=== PATIENT | male | born 1935 | race Caucasian/White ===

== ENCOUNTER → 2016-06-08 | Day surgery (SDC) | payer BC ==
[2016-06-02 08:20] VITALS: Ht 177.8 cm; Wt 72.7 kg
[~2016-06-08] VITALS: Ht 177.8 cm; Wt 72.7 kg
[~2016-06-08] MED LIST: 500ML BSS 0.3ML EPI 1:1000PF IRRIG ONE; ACETAMINOPHEN 325 MG TAB PO PRN; AGG PO; AMVISC PLUS 0.8ML SYRINGE INT OCU ONE; BSS FLUSH ONE; EpINEphrine INJ 1MG/ML AMP 1 MG/ML AMP ONE; LACTATED RINGER'S 1000ML 500 ML IV SCH; LIDOCAINE 3.5% OPH GEL PER APPLICATION CHARGE ONE; LIDOCAINE HCL 1% MPF 2 ML VIAL ONE; LISI5TAB3 PO; METO25TA3 PO; MIDAZOLAM HCL 1 MG/ML 2ML VIAL ONE; MULT-506 PO; OCUCOAT 1 ML SOLN IO ONE; OMEG10007 PO; POVIDONE-IODINE OP SOLN 30 ML BTL ONE; PROPARACAINE 0.5% OP SOLN PER DROP CHARGE OPL SCH; SIMV10TA2 PO; TOBRAMYCIN/DEXAMETHASONE OPH OINT PER APPLN CHARGE ONE; VALA500T60 PO
[2016-06-08] MEDS: PHENYLEPHRINE HCL 2.5% OP SOLN PER DROP CHARGE OPL SCH ×2 (09:14→09:19)
[2016-06-08] MEDS: TROPICAMIDE 1% OP SOLN PER DROP CHARGE OPL SCH ×2 (09:15→09:20)
[2016-06-08] MEDS: CYCLOPENTOLATE HCL 1% OP SOLN PER DROP CHARGE OPL SCH ×2 (09:16→09:21)
[2016-06-08] MEDS: KETOROLAC 0.5% OP SOLN PER DROP CHARGE OPL SCH ×2 (09:17→09:22)
[2016-06-08] MEDS: GATIFLOXACIN OP SOLN PER DROP CHARGE OPL SCH ×2 (09:18→09:28)
--- NOTE | 2016-06-08 09:47 | History & Physical Bridge - [place] ---
H&P Re-Evaluation Bridge Note: I have examined the patient, reviewed the History & Physical and in the interval since the performance of the History & Physical I have noted the following changes of clinical significance: No changes noted
--- NOTE | 2016-06-08 10:30 | Discharge Instructions-SurgCtr ---
Discharge Instructions Visit Reason for Visit: Cataract Left Eye Discharge Discharge Diagnosis / Problem: cataract Discharge Goals Goal(s): Improve function Activity Recommendations Activity Limitations: per Instructions/Follow-up section Anesthesia . Post Anesthesia Instructions: If you have had General Anesthesia or IV Sedation: * Do not drive today. * Resume driving when surgeon permits. * Do not make important decisions or sign legal documents today. * Call surgeon for: 1. Temperature elevations greater than 101 degrees F. 2. Uncontrollable pain. 3. Excessive bleeding. 4. Persistent nausea and vomiting. 5. Medication intolerance (nausea, vomiting or rash). * For nausea and vomiting use only clear liquids such as: tea, soda, bouillon until nausea subsides, then gradually increase diet as tolerated. * If you have any concerns or questions, call your surgeon's office. If physician is unavailable and it is an emergency, call 911 or go to the nearest emergency room. . Instructions / Follow-Up Instructions / Follow-Up ACTIVITY RECOMMENDATIONS: * No strenuous lifting, jogging or running for 4 days * No swimming or yard work for 1 week. * Limited bending is permitted, such as putting on shoes. RETURN TO SCHOOL/WORK: No work until seen by physician in office. MEDICATIONS: Resume previous medications unless instructed otherwise by your surgeon. This includes eye drops for glaucoma. Zymaxid/Gatifloxacin (medina cap) - one drop every 2 hours until bedtime Nevanac/Ilevro/Prolensa/Ketorolac (khan cap) - one drop every 4 hours until bedtime Prednisolone (white/pink cap, SHAKE WELL) - one drop every 2 hours until bedtime Starting tomorrow - all 3 drops every 4 hours until seen in the office Optive drops - as needed for discomfort SPECIAL CARE INSTRUCTIONS: * Wear eyeshield when sleeping, for four nights. * You may wear your own glasses or sunglasses while awake. * You may read or watch TV * You may shower and wash your face, but be gentle around the eye and pat dry. * Blurry vision and mild irritation are normal. * Call office if pain is more severe or vision becomes dark at . FOLLOW UP VISIT: Follow-up with Dr Alaniz tomorrow. Diet Recommendations Home Diet: resume previous diet Procedures Procedures Performed: Left Eye Cataract Phacoemulsification With Intraocular Lens Implant Pending Studies Studies pending at discharge: no Medical Emergencies . Who to Call and When: Medical Emergencies: If at any time you feel your situation is an emergency, please call 911 immediately. . Non-Emergent Contact Non-Emergency issues call your: Plug Cutting Machine Operator . . "Provider Documentation" section prepared by Garo Alaniz.
--- NOTE | 2016-06-08 10:31 | [facility] Operative Report ---
Operative Report 1. PREOPERATIVE DIAGNOSIS: Cataract of the left eye. 2. POSTOPERATIVE DIAGNOSIS: Same. 3. PROCEDURE: Phacoemulsification with intraocular lens implantation of the left eye. SURGEON: Dr. Garo Alaniz. ANESTHESIA: Topical Lidocaine gel, 1% Non- Preserved intracameral Lidocaine, and monitored intravenous sedation. INDICATIONS FOR THE PROCEDURE: The patient is a 80 - year-old male with a history of cataract of the left eye causing significant visual impairment. The details of the proposed procedure were explained to the patient who asked appropriate questions and following discussion of all risks, benefits and alternatives agreed to have the procedure done. 4. OPERATION AND FINDINGS: DESCRIPTION OF PROCEDURE: After informed consent was obtained, the patient was brought to the Operating Room at the [facility]. The patient was placed in a supine position and then the left eye was prepped and draped in the usual sterile fashion for intraocular surgery. A drop of topical Lidocaine gel was placed in the operative eye. A wire lid speculum was then placed in the fornices. A corneal paracentesis was then created temporally. The Non-Preserved Lidocaine was then instilled into the anterior chamber. The anterior chamber was then pressurized with viscoelastic. A 2.0 mm clear corneal incision was then created temporally. A cystotome was inserted into the anterior chamber and used to create a tear in the anterior lens capsule. This capsular tear was then used to create a small flap and the flap was dragged in a counterclockwise direction in order to create a continuous curvilinear capsulorrhexis. Hydrodissection was accomplished with balanced salt solution. Phacoemulsification of the lens nucleus was then performed in a standard [id number] technique. The phaco time was 33 seconds with an average power of 13 %. The remaining cortical material was removed using irrigation aspiration. The capsular bag was then filled with viscoelastic. A Bausch [employer] Lomb MI60L +17.5 diopters lens was then loaded into the injector and injected into the capsular bag. The remaining viscoelastic was removed with the irrigation aspiration handpiece. The wound was hydrated and then checked and found to be watertight. The intraocular pressure was checked and found to be adequate. The wire lid speculum was removed and the patient's face was cleaned and dried. TobraDex ointment was placed in the inferior fornix. The patient was discharged to the Recovery Room having tolerated the procedure well. There were no complications. The patient will be seen tomorrow in the office for follow-up. I attest to the content of the Intraoperative Record and any orders documented therein. Any exceptions are noted below.
--- NOTE | 2016-06-08 10:44 | Anesthesia Progress Nt - [facility] ---
Anesthesia Post Op Note Date & Time Jun 08, 2016 at 10:44 Vital Signs Pain Intensity: 0 Vital Signs Past 12 Hours Date Time Temp Pulse Resp B/P Pulse Ox O2 Delivery O2 Flow Rate FiO2 06/08/16 10:30 36.8 61 16 116/80 96 Room Air 06/08/16 09:28 139/86 06/08/16 09:07 36.6 56 18 150/89 97 Room Air Notes Mental Status: alert / awake / arousable, participated in evaluation Nausea / Vomiting: adequately controlled Pain: adequately controlled Airway Patency, RR, SpO2: stable & adequate BP & HR: stable & adequate Hydration State: stable & adequate Anesthetic Complications: no major complications apparent Pt doing well.
[2016-06-08 10:52] VITALS: BP 135/86; PULSE 59; O2SAT 99
== END | disposition home or self-care (01) ==
LOC: X.SURG 08:49
PROVIDERS: ATTEND Ophthalmology
DX: H26.9 Unspecified cataract (principal); I10 Essential (primary) hypertension; I67.89 Other cerebrovascular disease; E78.5 Hyperlipidemia, unspecified; H91.93 Unspecified hearing loss, bilateral

== ENCOUNTER → 2016-06-29 | Day surgery (SDC) | payer BC ==
[2016-06-18 14:23] VITALS: Ht 177.8 cm; Wt 72.7 kg
[~2016-06-29] VITALS: Ht 177.8 cm; Wt 72.7 kg
[~2016-06-29] MED LIST changes: -500ML BSS 0.3ML EPI 1:1000PF IRRIG ONE; -AMVISC PLUS 0.8ML SYRINGE INT OCU ONE; +ATROPINE SULFATE 0.1 MG/ML 5ML SYR IV PRN; -BSS FLUSH ONE; +EpHEDrine SULFATE INJ 50 MG/ML AMP IV PRN; +FENTANYL CITRATE INJ 50 MCG/1 ML 2 ML VIAL IV PRN; -OCUCOAT 1 ML SOLN IO ONE; +ONDANSETRON INJ 2 MG/ML 2 ML VIAL IV PRN; -PROPARACAINE 0.5% OP SOLN PER DROP CHARGE OPL SCH; +PROPARACAINE 0.5% OP SOLN PER DROP CHARGE OPR SCH
[2016-06-29] MEDS: PHENYLEPHRINE HCL 2.5% OP SOLN PER DROP CHARGE OPR SCH ×2 (08:15→08:20)
[2016-06-29] MEDS: TROPICAMIDE 1% OP SOLN PER DROP CHARGE OPR SCH ×2 (08:16→08:21)
[2016-06-29] MEDS: CYCLOPENTOLATE HCL 1% OP SOLN PER DROP CHARGE OPR SCH ×2 (08:17→08:22)
[2016-06-29] MEDS: KETOROLAC 0.5% OP SOLN PER DROP CHARGE OPR SCH ×2 (08:18→08:23)
[2016-06-29] MEDS: GATIFLOXACIN OP SOLN PER DROP CHARGE OPR SCH ×2 (08:19→08:24)
--- NOTE | 2016-06-29 09:29 | [facility] Operative Report ---
Operative Report 1. PREOPERATIVE DIAGNOSIS: Cataract of the right eye. 2. POSTOPERATIVE DIAGNOSIS: Same. 3. PROCEDURE: Phacoemulsification with intraocular lens implantation of the right eye. SURGEON: Dr. Garo Alaniz. ANESTHESIA: Topical Lidocaine gel, 1% Non- Preserved intracameral Lidocaine, and monitored intravenous sedation. INDICATIONS FOR THE PROCEDURE: The patient is a 80 - year-old male with a history of cataract of the right eye causing significant visual impairment. The details of the proposed procedure were explained to the patient who asked appropriate questions and following discussion of all risks, benefits and alternatives agreed to have the procedure done. 4. OPERATION AND FINDINGS: DESCRIPTION OF PROCEDURE: After informed consent was obtained, the patient was brought to the Operating Room at the [facility]. The patient was placed in a supine position and then the right eye was prepped and draped in the usual sterile fashion for intraocular surgery. A drop of topical Lidocaine gel was placed in the operative eye. A wire lid speculum was then placed in the fornices. A corneal paracentesis was then created temporally. The Non-Preserved Lidocaine was then instilled into the anterior chamber. The anterior chamber was then pressurized with viscoelastic. A 2.0 mm clear corneal incision was then created temporally. A cystotome was inserted into the anterior chamber and used to create a tear in the anterior lens capsule. This capsular tear was then used to create a small flap and the flap was dragged in a counterclockwise direction in order to create a continuous curvilinear capsulorrhexis. Hydrodissection was accomplished with balanced salt solution. Phacoemulsification of the lens nucleus was then performed in a standard [id number] technique. The phaco time was 29 seconds with an average power of 10 %. The remaining cortical material was removed using irrigation aspiration. The capsular bag was then filled with viscoelastic. A Bausch & Lomb MI60L +17.0 diopters lens was then loaded into the injector and injected into the capsular bag. The remaining viscoelastic was removed with the irrigation aspiration handpiece. The wound was hydrated and then checked and found to be watertight. The intraocular pressure was checked and found to be adequate. The wire lid speculum was removed and the patient's face was cleaned and dried. TobraDex ointment was placed in the inferior fornix. The patient was discharged to the Recovery Room having tolerated the procedure well. There were no complications. The patient will be seen tomorrow in the office for follow-up. I attest to the content of the Intraoperative Record and any orders documented therein. Any exceptions are noted below.
--- NOTE | 2016-06-29 09:29 | Discharge Instructions-SurgCtr ---
Discharge Instructions Visit Reason for Visit: Cataract Right Eye Discharge Discharge Diagnosis / Problem: cataract Discharge Goals Goal(s): Improve function Activity Recommendations Activity Limitations: per Instructions/Follow-up section Anesthesia . Post Anesthesia Instructions: If you have had General Anesthesia or IV Sedation: * Do not drive today. * Resume driving when surgeon permits. * Do not make important decisions or sign legal documents today. * Call surgeon for: 1. Temperature elevations greater than 101 degrees F. 2. Uncontrollable pain. 3. Excessive bleeding. 4. Persistent nausea and vomiting. 5. Medication intolerance (nausea, vomiting or rash). * For nausea and vomiting use only clear liquids such as: tea, soda, bouillon until nausea subsides, then gradually increase diet as tolerated. * If you have any concerns or questions, call your surgeon's office. If physician is unavailable and it is an emergency, call 911 or go to the nearest emergency room. . Instructions / Follow-Up Instructions / Follow-Up ACTIVITY RECOMMENDATIONS: * No strenuous lifting, jogging or running for 4 days * No swimming or yard work for 1 week. * Limited bending is permitted, such as putting on shoes. RETURN TO SCHOOL/WORK: No work until seen by physician in office. MEDICATIONS: Resume previous medications unless instructed otherwise by your surgeon. This includes eye drops for glaucoma. Zymaxid/Gatifloxacin (medina cap) - one drop every 2 hours until bedtime Nevanac/Ilevro/Prolensa/Ketorolac (khan cap) - one drop every 4 hours until bedtime Prednisolone (white/pink cap, SHAKE WELL) - one drop every 2 hours until bedtime Starting tomorrow - all 3 drops every 4 hours until seen in the office Optive drops - as needed for discomfort SPECIAL CARE INSTRUCTIONS: * Wear eyeshield when sleeping, for four nights. * You may wear your own glasses or sunglasses while awake. * You may read or watch TV * You may shower and wash your face, but be gentle around the eye and pat dry. * Blurry vision and mild irritation are normal. * Call office if pain is more severe or vision becomes dark at . FOLLOW UP VISIT: Follow-up with Dr Alaniz tomorrow. Diet Recommendations Home Diet: resume previous diet Procedures Procedures Performed: Right Cataract Phacoemulsification With Intraocular Lens Implant Pending Studies Studies pending at discharge: no Medical Emergencies . Who to Call and When: Medical Emergencies: If at any time you feel your situation is an emergency, please call 911 immediately. . Non-Emergent Contact Non-Emergency issues call your: Plug Paster . . "Provider Documentation" section prepared by Garo Alaniz.
[2016-06-29 09:50] VITALS: BP 135/83; PULSE 62; O2SAT 99
--- NOTE | 2016-06-29 10:01 | Anesthesia Progress Nt - [facility] ---
Anesthesia Post Op Note Date & Time Jun 29, 2016 at 10:01 Vital Signs Pain Intensity: 0 Vital Signs Past 12 Hours Date Time Temp Pulse Resp B/P Pulse Ox O2 Delivery O2 Flow Rate FiO2 06/29/16 09:50 62 16 135/83 99 Room Air 06/29/16 09:44 58 16 120/75 99 Room Air 06/29/16 09:29 36.4 51 20 120/75 99 Room Air 06/29/16 08:10 36.4 56 18 156/91 98 Room Air Notes Mental Status: alert / awake / arousable, participated in evaluation Pt Amnestic to Procedure: Yes Nausea / Vomiting: adequately controlled Pain: adequately controlled Airway Patency, RR, SpO2: stable & adequate BP & HR: stable & adequate Hydration State: stable & adequate Anesthetic Complications: no major complications apparent
== END | disposition home or self-care (01) ==
LOC: X.SURG 08:00
PROVIDERS: ATTEND Ophthalmology
DX: H26.9 Unspecified cataract (principal); H54.7 Unspecified visual loss; I12.9 Hypertensive chronic kidney disease with stage 1 through stage 4 chronic kidney disease, or unspecified chronic kidney disease; N18.9 Chronic kidney disease, unspecified; E78.5 Hyperlipidemia, unspecified; Z86.73 Personal history of transient ischemic attack (TIA), and cerebral infarction without residual deficits

== ENCOUNTER → 2017-01-28 | Outpatient (CLI) | payer BC ==
[~2017-01-28] MED LIST changes: -ACETAMINOPHEN 325 MG TAB PO PRN; -ATROPINE SULFATE 0.1 MG/ML 5ML SYR IV PRN; -EpHEDrine SULFATE INJ 50 MG/ML AMP IV PRN; -EpINEphrine INJ 1MG/ML AMP 1 MG/ML AMP ONE; -FENTANYL CITRATE INJ 50 MCG/1 ML 2 ML VIAL IV PRN; -LACTATED RINGER'S 1000ML 500 ML IV SCH; -LIDOCAINE 3.5% OPH GEL PER APPLICATION CHARGE ONE; -LIDOCAINE HCL 1% MPF 2 ML VIAL ONE; -MIDAZOLAM HCL 1 MG/ML 2ML VIAL ONE; -ONDANSETRON INJ 2 MG/ML 2 ML VIAL IV PRN; -POVIDONE-IODINE OP SOLN 30 ML BTL ONE; -PROPARACAINE 0.5% OP SOLN PER DROP CHARGE OPR SCH; -TOBRAMYCIN/DEXAMETHASONE OPH OINT PER APPLN CHARGE ONE
--- NOTE | 2017-01-28 10:15 | DIAGNOSTIC IMAGING REPORT ---
AP PELVIS AND RIGHT HIP 3 VIEWS CLINICAL HISTORY: Postop total right hip arthroplasty COMPARISON: AP pelvis dated 01/23/2015 DISCUSSION: There are postsurgical changes of a total right hip arthroplasty. No acute fractures or subluxations are visualized. The prosthesis remains similar to the prior January 2015 study. There are no conventional radiographic findings to indicate loosening. Note is made of vascular calcifications. IMPRESSION: Postsurgical changes of a total right hip arthroplasty. No fractures or dislocations identified. Electronically signed by: Wilder Weir M.D. 01/28/2017 10:14 AM Dictated Date/Time: 01/28/2017 10:12 AM
== END | disposition home or self-care (01) ==
LOC: C.RDSM 08:42
PROVIDERS: ATTEND Physician Assistant
DX: Z96.641 Presence of right artificial hip joint (principal)

== ENCOUNTER 2022-03-17 06:33 | Observation (INO) ==
--- NOTE | 2022-02-22 15:57 | PAT Medication Instructions ---
Medication Instructions Date of Service February 22, 2022 Home Medications acetaminophen 500 mg tablet 1,000 mg PO Q6H PRN aspirin 81 mg tablet,delayed release 81 mg PO QAM lisinopril 5 mg tablet 5 mg PO QAM metoprolol succinate 25 mg tablet,extended release 24 hr 25 mg PO QAM multivitamin 1 tab PO QAM omega-3 fatty acids-vitamin E 1,000 mg capsule 1 cap PO QAM simvastatin 40 mg tablet 40 mg PO HS tamsulosin 0.4 mg capsule 0.4 mg PO HS valacyclovir 500 mg tablet 500 mg PO BID PRN STOP taking 2 weeks before surgery omega-3 fatty acids-vitamin E 1,000 mg capsule 1 cap PO QAM DO NOT take the morning of surgery lisinopril 5 mg tablet 5 mg PO QAM multivitamin 1 tab PO QAM Take morning of surgery With a small sip of water, OTHERWISE NOTHING TO EAT OR DRINK AFTER MIDNIGHT: acetaminophen 500 mg tablet 1,000 mg PO Q6H PRN(if needed) aspirin 81 mg tablet,delayed release 81 mg PO QAM (unless directed otherwise by surgeon) metoprolol succinate 25 mg tablet,extended release 24 hr 25 mg PO QAM valacyclovir 500 mg tablet 500 mg PO BID PRN(if needed) Take evening before surgery acetaminophen 500 mg tablet 1,000 mg PO Q6H PRN(if needed) simvastatin 40 mg tablet 40 mg PO HS tamsulosin 0.4 mg capsule 0.4 mg PO HS valacyclovir 500 mg tablet 500 mg PO BID PRN(if needed) Other Notes If you have any questions please call us at [phone] or [phone] or [phone] or [phone]
--- NOTE | 2022-03-01 10:07 | Anesthesiology Consultation ---
Date of Service March 01, 2022 Assessment & Plan (1) Encounter for pre-operative examination: - COVID screening: Per assessment on 03/01: No known COVID-19 positive contacts or current COVID-19 related symptoms. Travel screen negative. Patient vaccinated. At surgeon discretion if preop Covid testing being done. - Outpatient joint assessment: Pt currently scheduled for inpatient pathway. If surgeon requests review for outpatient joint pathway, patient is not recommended candidate for outpatient joint program from anesthesia standpoint. - Patient acceptable risk for surgery pending surgeon-ordered PCP preop evaluation (Dr. Chang). Chart Review Chart Review: Patient seen in Pre Admission Testing Teaching & Discussion Pre-Anesthesia Teaching/Discussion Notes: Instructed NPO after midnight before surgery,except medications with 15 cc of water. Medication instructions provided according to the PAT guidelines. History Surgery Operation Date: 03/17/22 07:00 Proposed Procedures p Right Total Knee Arthroplasty - Walter Fried MD Height/Weight Height: 5 ft 9 in Weight: 70.2 kg Allergies Allergy/AdvReac Type Severity Reaction Status Date / Time No Known Drug Allergies Allergy Unknown . Verified 02/22/22 14:54 Medications Home Medications Medication Instructions Recorded Confirmed Last Taken acetaminophen 500 mg tablet 1,000 mg PO Q6H PRN Pain 02/22/22 02/22/22 Unknown aspirin 81 mg tablet,delayed 81 mg PO QAM 02/22/22 02/22/22 Unknown release lisinopril 5 mg tablet 5 mg PO QAM 02/22/22 02/22/22 Unknown metoprolol succinate 25 mg 25 mg PO QAM 02/22/22 02/22/22 Unknown tablet,extended release 24 hr multivitamin 1 tab PO QAM 02/22/22 02/22/22 Unknown omega-3 fatty acids-vitamin E 1 cap PO QAM 02/22/22 02/22/22 Unknown 1,000 mg capsule simvastatin 40 mg tablet 40 mg PO HS 02/22/22 02/22/22 Unknown tamsulosin 0.4 mg capsule 0.4 mg PO HS 02/22/22 02/22/22 Unknown valacyclovir 500 mg tablet 500 mg PO BID PRN Cold Sores 02/22/22 02/22/22 Unknown Past Medical History Medical History History of BPH History of COVID-19 04/2021 (home test), Mild cold symptoms > resolved History of Mohs micrographic surgery for skin cancer Near nose Hx of hearing loss B/L hearing aids Hx of osteoarthritis Hyperlipemia Hypertension 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, right sided decreased sensitivity Exercise / Class Metabolic Activity III < 4 Walking/Shop/Light housework Past Surgical History Surgical History History of dental surgery Multiple bridges History of total right hip arthroplasty 2007 Hx of cataract extraction R/L Hx of colonoscopy Hx of inguinal hernia surgery R/L Past Anesthesia History No Family Hx of Anesthesia Complications and Other (Awareness with Right USHA done in 2007 at [facility] under [facility]) History of PONV No Hx of PONV and No Hx of Motion Sickness Social History Smoking Status: Never smoker Do You Dip or Chew Tobacco: No Hx Alcohol Use: Yes Alcohol type: beer, wine and hard liquor alcohol intake frequency: 0-2 drinks per day (1-2 drinks/day) Hx Substance Use: No substance use type: does not use Review of Systems Patient denies chest pain, shortness of breath, fever, chills, cough, wheezing, palpitations. Physical Exam Vital Signs VITALS BP 140/89 P 58 TEMP 98.5 SP02 96%RA RESP 16 PHYSICAL Full cervical extension range of motion. Full TMJ range of motion. TMD 4 finger breaths Mallampati Score 3 Dentition: intact, several bridge, planned for upcoming bridge-work 03/03 (surgeon aware per pt) Lungs: clear throughout to auscultation Cardiac: regular rate and rhythm, no murmurs noted Spine: normal Carotid arteries: negative bruit Extremities: no edema Lab Results Anesthesia Preop Results Results Anesthesia Widget: WBC 5.32 K/ul (4.8-10.8) 03/01/22 Hgb 13.0 g/dl (14.0-18.0) L 03/01/22 Hct 37.1 % (40.1-51.0) L 03/01/22 Plt 203 K/uL (130-400) 03/01/22 Na 139 mmol/L (136-145) 03/01/22 K 4.5 mmol/L (3.5-5.1) 03/01/22 Cl 107 mmol/L (98-107) 03/01/22 CO2 28 mmol/L (21-32) 03/01/22 BUN 21 mg/dl (6-23) 03/01/22 Creat 1.15 mg/dl (0.6-1.4) 03/01/22 Glucose Level 78 mg/dl (70-99(Fasting)) 03/01/22 PT 10.7 Seconds (9.0-12.0) 03/01/22 PTT 27.9 Seconds (21.0-31.0) 03/01/22 INR 1.0 (0.9-1.1) 03/01/22 Urine Color Yellow 03/01/22 Urine Appearance Clear (Clear) 03/01/22 Urine pH 6.0 (4.5-7.5) 03/01/22 Urine Specific Wren 1.018 (1.000-1.030) 03/01/22 Urine Protein Negative (Negative) 03/01/22 Urine Glucose (UA) Negative (Negative) 03/01/22 Urine Ketones Negative (Negative) 03/01/22 Urine Blood Negative (Negative) 03/01/22 Urine Nitrite Negative (Negative) 03/01/22 Urine Bilirubin Negative (Negative) 03/01/22 Urine Urobilinogen Negative (Negative) 03/01/22 Urine Leukocyte Esterase Negative (Negative) 03/01/22 Blood Type B Positive 03/01/22 Antibody Screen NEGATIVE 03/01/22 Testing Electrocardiogram Date: 03/01/22 SB at 52bpm. Early repolarization. Otherwise normal ECG. Report forwarded to PCP. Chest X-Ray Date: 03/01/22 FINDINGS: There is a tortuous thoracic aorta. The heart is normal in size. The lungs are clear. No pleural fusions. No pneumothorax. Degenerative changes noted within the shoulders and thoracic spine. The lungs are mildly hyperexpanded. IMPRESSION: No acute process. COVID-19 Risk Screen Screening Information COVID-19 Screen Date: 03/01/22 Exposure 21 Days Family/Household +COVID Last 21 Days: No Exposure 10 Days Any COVID Exposure Last 10 Days: No Symptoms Last 10 Days Experienced COVID Sx Last 10 Days: No + COVID 0-90 Days COVID + in Last 0-90 Days: No
--- NOTE | 2022-03-02 10:40 | History & Physical Report ---
Date of Service March 02, 2022 Assessment & Plan (1) Right knee DJD: Plan: Postoperative prescriptions for Percocet and Coumadin will be provided at discharge from the hospital. Anticipate discharge to home with home health services. Possibility of going back to the [facility] was discussed. It would depend on bed status. That would be his first choice. He has already seen his PCP for medical clearance. PDMP was checked and there are no concerning findings. The patient is aware of the COVID-19 risk associated with surgery. He is currently asymptomatic of any COVID-19 symptoms. Postop followup appointment has been made for 04/01 at 11:15 a.m. with BRII Portillo. History of Present Illness Chief Complaint: Right knee pain Primary Care Provider: [facility] This 86-year-old male presents with his for his preoperative history and physical. He is scheduled to undergo a right knee total knee arthroplasty on 03/17/2022. The patient has had a longstanding history of right knee pain. Symptoms have been ongoing for years. He had a significant increase in pain in August of this year. Pain is primarily medial. He has tried activity modification as well as viscosupplementation and Voltaren gel without improvement. He denies any effusions. Pain is worse with weightbearing. It is affecting his ADLs. Preoperative imaging has been obtained. He elected to proceed with surgical intervention in hopes of improving his function and pain control. Allergies Allergy/AdvReac Type Severity Reaction Status Date / Time No Known Drug Allergies Allergy Unknown . Verified 02/22/22 14:54 Home Medications Medication Instructions Recorded Confirmed Type acetaminophen 500 mg tablet 1,000 mg PO Q6H PRN Pain 02/22/22 02/22/22 History aspirin 81 mg tablet,delayed 81 mg PO QAM 02/22/22 02/22/22 History release lisinopril 5 mg tablet 5 mg PO QAM 02/22/22 02/22/22 History metoprolol succinate 25 mg 25 mg PO QAM 02/22/22 02/22/22 History tablet,extended release 24 hr multivitamin 1 tab PO QAM 02/22/22 02/22/22 History omega-3 fatty acids-vitamin E 1 cap PO QAM 02/22/22 02/22/22 History 1,000 mg capsule simvastatin 40 mg tablet 40 mg PO HS 02/22/22 02/22/22 History tamsulosin 0.4 mg capsule 0.4 mg PO HS 02/22/22 02/22/22 History valacyclovir 500 mg tablet 500 mg PO BID PRN Cold Sores 02/22/22 02/22/22 History Past Med/Surg History Medical History History of BPH History of COVID-19 04/2021 (home test), Mild cold symptoms > resolved History of Mohs micrographic surgery for skin cancer Near nose Hx of hearing loss B/L hearing aids Hx of osteoarthritis Hyperlipemia Hypertension 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, right sided decreased sensitivity Surgical History History of dental surgery Multiple bridges History of total right hip arthroplasty 2007 Hx of cataract extraction R/L Hx of colonoscopy Hx of inguinal hernia surgery R/L Social History (Updated 03/02/22 @ 10:36 by Patrick Burgess PA-C) Smoking Status: Never smoker Second Hand Exposure: No; Hx Alcohol Use: Yes Alcohol type: beer, wine and hard liquor Hx Substance Use: No Preferred Language: Belarusian Communication Ability: Effective 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 Temperature 36.1, BP 142/70, pulse 78, O2 sat 99% on room air. General: Well-developed, well-nourished elderly white male in no acute distress. Sitting in a chair. Alert and oriented. Skin: Warm and dry with good turgor. No rashes or lesions. No ecchymosis or erythema. No intra-articular effusion at the knee. HEENT: Normocephalic, atraumatic. Eyes: PERRLA. EOMI. Nares and oropharynx exam deferred due to COVID precautions. Hearing aid in the right ear. Heart RRR. No MGR. Lungs: Clear to auscultation bilaterally. No crackles, rhonchi or wheezing. Good air movement. Abdomen: Bowel sounds present x4, soft, nontender. No organomegaly. No masses. Musculoskeletal: Right knee evaluation reveals full terminal extension. Flexion to greater than 110 degrees. Strength is 5/5 with fairly good quad tone. He has focal pain with palpation over the medial joint line. No significant lateral joint line discomfort with palpation. No palpable crepitus with range of motion. Reasonable patellar mobility. Intact patellar tendon and quadriceps tendon. Varus alignment. He is ambulating today with a slightly antalgic gait using his cane. Neurologic: Gross sensation is intact across both lower extremities by soft touch. Peripheral pulses are 2+. Results & Data Results & Data ([facility]) Diagnostic Findings Radiographic imaging previously obtained shows medial joint space collapse in both knees. He has bone on bone. Periarticular osteophytes and subchondral sclerosis are also present. No evidence of loose bodies. Code Status & VTE Plan VTE Prophylaxis Plan VTE Prophylaxis will be ordered: Yes
[~2022-03-17 06:33] MED LIST changes: -AGG PO; +BUPIVACAINE 0.5 % 5 MG/1 ML PF 10ML VIAL ONE; -LISI5TAB3 PO; +LR 500ML BOLUS, THEN 15ML/HR IV SCH; +LR 60ML/HR IV SCH; -METO25TA3 PO; -MULT-506 PO; -OMEG10007 PO; +ROPIVACAINE 0.5% 5 MG/ML 30 ML VIAL ONE; +ROPIVACAINE 0.5% HCL/PF 150 MG, BUPIVACAINE 0.75% MPF 20 ML, EPINEPHrine 0.15 MG, Ketor... INFIL SCH; -SIMV10TA2 PO; +TRANEXAMIC ACID 1,000 MG x 1 **For Topical Use TOP SCH; -VALA500T60 PO; +ceFAZolin 2000MG 2,000 MG/15 ML SYR IV SCH
--- NOTE | 2022-03-17 06:50 | History & Physical Bridge Note ---
Date of Service March 17, 2022 History & Physical Bridge Note I have examined the patient, reviewed the History & Physical and in the interval since the performance of the History & Physical I have noted the following changes of clinical significance:consent reviewed/site verified. no changes noted
[2022-03-17] MEDS ORDERED: MIDAZOLAM HCL 1 MG/ML 2ML VIAL ONE (07:08)
[2022-03-17] MEDS ORDERED: ePHEDrine sulfate 50 MG/ML AMP IV PRN (08:10)
[2022-03-17] MEDS ORDERED: ATROPINE SULFATE 0.1 MG/ML 10ML SYR IV PRN (08:10)
[2022-03-17] MEDS ORDERED: fentaNYL citrate 100 MCG/2 ML VIAL IV PRN (08:10)
[2022-03-17] MEDS ORDERED: HYDROmorphone INJ 2 MG/ML SYR/VIAL IV PRN (08:10)
[2022-03-17] MEDS ORDERED: ONDANSETRON INJ 2 MG/ML 2 ML VIAL IV PRN ×2 (08:10→11:54)
[2022-03-17] MEDS ORDERED: ORTHO JOINT ANESTHETIC ONE (08:33)
[2022-03-17] MEDS ORDERED: PROPOFOL IV EMULSION 10 MG/ML 20 ML VIAL IV ONE (08:49)
--- NOTE | 2022-03-17 09:13 | Discharge Summary (DS) ---
DATE OF ADMISSION: 03/17/2022. DATE OF POTENTIAL DISCHARGE: 03/18/2022. CHIEF COMPLAINT: Right knee pain. HISTORY OF PRESENT ILLNESS: The patient underwent elective right total knee replacement. To date, hospital course has been uneventful. ALLERGIES: None. MEDICATIONS: Preop include p.r.n. Tylenol, aspirin 81 mg daily, lisinopril 5 mg daily, metoprolol 25 mg daily, simvastatin 40 mg at bedtime, tamsulosin 0.4 mg at bedtime, valacyclovir 500 mg p.r.n. cold sores. PAST MEDICAL, PAST SURGICAL HISTORY: Remarkable for BPH, COVID-19, history of Mohs surgery, hearing loss, bilateral hearing aids, osteoarthritis, hyperlipidemia, hypertension, stroke in 2006, abdominal surgery, right hip replacement, cataract extraction, colonoscopy, inguinal hernia surgery. SOCIAL HISTORY: Reveals he does not smoke. Social alcohol only. He is retired, lives with his spouse. REVIEW OF SYSTEMS: Noncontributory. No chest pain, shortness of breath, fever, chills, nausea, vomiting, headache. ASSESSMENT: Doing well status post right total knee replacement. Discharge to home tomorrow if he does well overnight. Job ID: [id number] [facility]
--- NOTE | 2022-03-17 10:07 | Post Operative Brief Note ---
Immediate Post Op Note v1 Date of Surgery March 17, 2022 Pre & Post Diagnosis Operation Date: 03/17/22 09:00 Pre-Op Diagnosis: Right Knee Degenerative Joint Disease Post-Op Diagnosis: Right Knee Degenerative Joint Disease I identified the patient and participated in the time-out.: Yes Procedure Operation Date: 03/17/22 09:00 Actual Procedures p Right Total Knee Arthroplasty(Right) - Walter Fried MD Surgeon Walter Fried MD Lead Ingot Molder [facility] Estimated Blood Loss 75 Findings Consistent with Post-Op Diagnosis
--- NOTE | 2022-03-17 10:17 | Operative Report ---
Post Operative Report Pre & Post Diagnosis Operation Date: 03/17/22 09:00 Pre-Op Diagnosis: Right Knee Degenerative Joint Disease Post-Op Diagnosis: Right Knee Degenerative Joint Disease I identified the patient and participated in the time-out.: Yes Procedure Operation Date: 03/17/22 09:00 Actual Procedures p Right Total Knee Arthroplasty(Right) - Walter Fried MD Surgeon MARLEEN Fried MD Facing Slitter Aditya TERESA Estimated Blood Loss 75 Findings Consistent with Post-Op Diagnosis see operative report Specimens see operative report Drains none Complications none Disposition Accompanied Patient To Recovery: Yes Indications This 86 year old male presented the office with complaints of persisting right knee pain. He had tried conservative care measures without improvement. He elected to proceed with surgical intervention after being educated about potential risks and outcomes. Preoperative imaging was obtained. Description of Procedure Patient was administered a spinal anesthetic and then taken to the operating room where he was given sedation. He was prepped and draped in the usual sterile fashion. Please see Dr. Fried's operative report for specifics of the procedure. I was present for the entire case from initial patient positioning through final wound closure. Assistance was provided in tissue retraction, hemostasis, trial implant placement, final implant placement, and final wound closure. Patient was taken to the recovery room in satisfactory condition. I attest to the content of the Intraoperative Record and any orders documented therein. Any exceptions are noted below.
--- NOTE | 2022-03-17 10:31 | Progress Notes ---
SUBJECTIVE: Postop check status post right total knee replacement. The patient is awake, alert. De nies any chest pain, shortness of breath, fever, chills, nausea, vomiting, or headache. OBJECTIVE: Vital signs are stable. He is afebrile. Neurovascular check limited by spinal. Wound d ressing clean, dry, and intact. IMAGING: X-rays, AP and lateral looked good. ASSESSMENT AND PLAN: Doing well status post right total knee replacement. Continue with care gali neville Job ID: [id number]
--- NOTE | 2022-03-17 10:55 | XRay Report ---
XR knee RT 1 or 2V routine CLINICAL HISTORY: S/P R TKA COMPARISON: Right knee radiographs September 10, 2021. FINDINGS: Alignment of the total right knee arthroplasty is anatomic. There is no periprosthetic fra cture or unexpected radiopaque foreign body. There are skin vane. Vascular calcification is incide ntally noted. IMPRESSION: Expected findings following total right knee arthroplasty. ACT 112: Negative or not required by law. Electronically signed by: Luis Manuel Foster M.D. 03/17/2022 10:53 AM
[2022-03-17] MEDS ORDERED: SODIUM CHLORIDE 0.9% 1000ML 1,000 ML IV SCH (11:54)
[2022-03-17] MEDS ORDERED: METOCLOPRAMIDE HCL INJ 5 MG/ML 2 ML VIAL IV PRN (11:54)
[2022-03-17] MEDS ORDERED: bisacodyL 10 MG SUPP PR PRN (11:54)
[2022-03-17] MEDS ORDERED: valACYclovir HCL 500 MG TABLET PO PRN (11:54)
[2022-03-17] MEDS ORDERED: VANCOMYCIN CONSULT ACTIVE PRN (11:54)
[2022-03-17] MEDS ORDERED: HYDROmorphone INJ 0.5 MG/0.5 ML SYR IV PRN (11:54)
[2022-03-17] MEDS ORDERED: oxyCODONE HCL IR 5 MG TAB (IMMEDIATE RELEASE) PO PRN (11:54)
[2022-03-17] MEDS ORDERED: ALUMINUM/MAGNESIUM SUSP 30 ML UDC PO PRN (11:54)
[2022-03-17] MEDS ORDERED: diphenhydrAMINE 50 MG/ML VIAL IV PRN (11:54)
[2022-03-17] MEDS ORDERED: MAGNESIUM HYDROXIDE SUSP 30 ML UDC PO PRN (11:54)
[2022-03-17] MEDS ORDERED: NALOXONE HCL 0.4 MG/1 ML VIAL/CARP IV PRN (11:54)
--- NOTE | 2022-03-17 12:11 | Operative Report (OR) ---
DATE OF PROCEDURE: 03/17/2002. PREOPERATIVE DIAGNOSIS: Osteoarthritis with flexion varus deformity, right knee. POSTOPERATIVE DIAGNOSIS: Osteoarthritis with flexion varus deformity of right knee. OPERATION PERFORMED: Cemented right total knee replacement. SUMMARY OF IMPLANTS: J and J rotating platform size 3 femur, size 3 mobile bearing tray, size 41 pat jose, 3 x 15 insert posterior cruciate substituting, 2 bags of Palacos G cement. BONE PATHOLOGY: Pending on resection. PERIOPERATIVE SITUATION: Medically cleared male with intractable knee pain, has failed conservative management and wants to proceed with surgical treatment. He understands the risks and consequences o f the joint replacement, had his hip done. DESCRIPTION OF PROCEDURE: The patient was appropriately identified, site verified, consent verified. Antibiotics were confirmed as being given. Right lower extremity was prepped and draped in the usu al routine fashion with tourniquet inflated to 300 mmHg after exsanguination of the limb with a rubbe r Esmarch bandage for a total of 48 minutes. Midline exposure was utilized. Parapatellar arthrotomy was performed. A bursectomy was performed due to extra tissue. The arthrotomy made. The synovecto my completed. Patella easily everted. Medial soft tissues released appropriately. Menisci excised. Cruciates were excised. Tibia was subluxated. Distal femur entered, resected 14 mm, proximal tibi a resected 4 mm, the extension and flexion gaps were excellent. The flexion gap was cut after the fe mur was sized between a 4 and a 3 measured 4 cut 3, no notching. Box cut was then made and size 3 fi t well. The size 3 tibia was then broached and reamed. An appropriate spacer was placed. The 15 mm insert gave excellent mid range stability with no loss of extension. Patella tracked well. It was resected leaving 14 mm and the 41 button seated, it tracked well. Orthomix was then injected all abo ut the knee. Trial implants were then removed and the TXA was placed for 4-1/2 minutes. The wound t hen irrigated and then the permanent cemented in position; tibia, femur, and patella in that order. At 12 minutes, the tourniquet deflated. Minor bleeding points were controlled with electrocautery. At 14 minutes, the knee was flexed. The trial spacer removed. The knee was irrigated. No cement re moval was required. The permanent liner seated. The knee reduced and closed at 40 degrees of flexio n with #2 Vicryl, 2-0 Vicryl, and stainless steel clips. Appropriate dressing applied. The patient was transferred to recovery room in satisfactory condition, having tolerated the procedure well. Job ID: [id number]
--- NOTE | 2022-03-17 12:37 | Anesthesiology Progress Note ---
Date of Service March 17, 2022 Anesthesia Post Procedure Vital Signs Vital Signs: Temp Pulse Pulse Resp BP Pulse Ox O2 Del Method 03/17/22 12:15 51 L 18 143/87 H 98 Room Air 03/17/22 12:00 54 L 20 154/90 H 98 Room Air 03/17/22 11:55 51 L 20 155/90 H 100 Room Air 03/17/22 11:45 36.4 C L 51 L 16 152/86 H 100 Room Air 03/17/22 11:35 53 L 16 156/92 H 100 Room Air 03/17/22 11:25 36.6 C 47 L 14 145/85 H 100 Room Air 03/17/22 11:15 36.6 C 51 L 13 144/83 H 100 Room Air 03/17/22 11:05 36.6 C 53 L 18 124/88 92 Room Air 03/17/22 10:55 54 L 14 128/83 100 Room Air 03/17/22 10:45 49 L 16 128/84 96 Room Air 03/17/22 10:35 54 L 15 157/78 H 98 Oxymask 03/17/22 10:25 53 L 19 152/87 H 95 Oxymask 03/17/22 10:18 36.7 C 63 14 145/92 H 62 L Oxymask 03/17/22 07:12 36.5 C 57 L 18 162/94 H 97 Room Air O2 Flow Rate 03/17/22 12:15 03/17/22 12:00 03/17/22 11:55 03/17/22 11:45 03/17/22 11:35 03/17/22 11:25 03/17/22 11:15 03/17/22 11:05 03/17/22 10:55 03/17/22 10:45 03/17/22 10:35 2 03/17/22 10:25 3 03/17/22 10:18 5 03/17/22 07:12 Transfer of Care Handoff Completed per policy Notes Mental Status: alert / awake / arousable and participated in evaluation Patient Amnestic to Procedure: Yes Nausea / Vomiting: adequately controlled Pain: adequately controlled Airway Patency, RR, SpO2: stable & adequate BP & HR: stable & adequate Hydration State: stable & adequate Anesthetic Complications: no major complications apparent and Pt Satisfied with anesthetic care
[2022-03-17] MEDS ORDERED: ORTHO WARFARIN NOMOGRAM SCH (14:00)
[2022-03-17] MEDS ORDERED: VANCOMYCIN HCL 1,000 MG in SODIUM CHLORIDE 0.9% 250 ML IV ONE (14:00)
[2022-03-17] MEDS: ACETAMINOPHEN 500 MG TAB PO SCH ×2 (14:17→20:44)
[2022-03-17] MEDS: KETOROLAC TROMETHAMINE 15 MG/ML VIAL IV SCH ×2 (14:18→20:43)
[2022-03-17] MEDS ORDERED: WARFARIN SOD 5 MG TAB PO SCH (16:00)
[2022-03-17] MEDS: ceFAZolin 2000MG 2,000 MG/15 ML SYR IV SCH (16:54)
[2022-03-17] MEDS: ASCORBIC ACID 500 MG TAB PO SCH (16:55)
[2022-03-17] MEDS: FERROUS GLUCONATE 324 MG TAB PO SCH (16:55)
[2022-03-17] MEDS: DOCUSATE SODIUM 100 MG CAP PO SCH (20:44)
[2022-03-17] MEDS ORDERED: SENNA 8.6 MG TAB PO SCH (21:00)
[2022-03-17] MEDS ORDERED: SIMVASTATIN 40 MG TAB PO SCH (21:00)
[2022-03-17] MEDS ORDERED: TAMSULOSIN HCL 0.4 MG CAP PO SCH (21:00)
[2022-03-18] MEDS: ceFAZolin 2000MG 2,000 MG/15 ML SYR IV SCH (01:16)
[2022-03-18] MEDS: KETOROLAC TROMETHAMINE 15 MG/ML VIAL IV SCH ×2 (01:16→08:30)
[2022-03-18] MEDS: ACETAMINOPHEN 500 MG TAB PO SCH (05:41)
[2022-03-18 06:30] LABS: Hematocrit (blood only) 33.1 % (40.1-51.0); Hemoglobin 11.5 g/dl (14.0-18.0); Mean Corpuscular Hemoglobin 33.8 pg (25.0-34.0); Mean Corpuscular Hgb Conc 34.7 g/dL (32.0-36.0); Mean Corpuscular Volume 97.4 fL (80.0-100.0); Mean Platelet Volume 9.6 fL (9.4-12.4); Platelet Count 182 K/uL (130-400); RDW Coefficient of Variation 11.2 % (11.5-14.5); RDW Standard Deviation 39.7 fL (36.4-46.3)
[2022-03-18 06:36] LABS: INR 1.1 (0.9-1.1); Prothrombin Time 11.4 Seconds (9.0-12.0)
[2022-03-18 07:00] LABS: BUN Creatinine Ratio 18.7 (10-20); Est GFR (African American) 61.7 ml/min; Est GFR (Non-African American) 53.2 ml/min; Potassium 4.1 mmol/L (3.5-5.1)
--- NOTE | 2022-03-18 07:11 | Progress Notes ---
DATE OF SERVICE: 03/18/2022. SUBJECTIVE: Postop check status post right total knee replacement. The patient is doing well. Abhishek es any chest pain, shortness of breath, fever, chills, nausea, vomiting or headache. OBJECTIVE: Vital signs are stable. He is afebrile. Wound dressing clean, dry and intact. Neurovascular check, femoral sciatic nerve is normal. Can do a straight leg raise. Calves nontender . LABORATORY DATA: Hematocrit is stable in the 30s. ASSESSMENT AND PLAN: Doing well. Discharged home today after PT/OT and dressing change. Coumadin d ose per nomogram. Job ID: [id number]
[2022-03-18] MEDS ORDERED: dexAMETHasone 10 MG in SYRINGE 0 ML IV SCH (08:00)
[2022-03-18] MEDS: ASCORBIC ACID 500 MG TAB PO SCH (08:29)
[2022-03-18] MEDS: DOCUSATE SODIUM 100 MG CAP PO SCH (08:29)
[2022-03-18] MEDS: FERROUS GLUCONATE 324 MG TAB PO SCH (08:29)
[2022-03-18] MEDS ORDERED: ASPIRIN 81 MG ECTAB PO SCH (09:00)
[2022-03-18] MEDS ORDERED: MULTIVITAMIN TAB PO SCH (09:00)
[2022-03-18] MEDS ORDERED: lisinopril 5 MG TAB PO SCH (09:00)
[2022-03-18] MEDS ORDERED: METOPROLOL SUCC 25MG EXT REL TAB PO SCH (09:00)
--- NOTE | 2022-03-18 09:49 | Orthopedic Progress Note ---
Date of Service March 18, 2022 Assessment & Plan (1) S/P total knee replacement using cement: Plan: Patient was seen in his room this morning. His dressing was changed by me. Continue with ice and elevation. Discharge to the [facility] after PT/OT this morning. He will start PT over the weekend. Continue using a walker when ambulating. He will use the knee immobilizer today and tomorrow, and discontinue its use on Tuesday morning. Prescriptions for Percocet and Coumadin 2mg were sent to his pharmacy. Follow-up in the office in 2 weeks as scheduled for staple removal. Written discharge instructions were provided. Admission and Anticipated Discharge Date Admission Date: March 17, 2022 Subjective This 86-year-old male is seen today in his room. He is 1 day status post right total knee arthroplasty. He states he is doing well. He is sitting in his chair eating breakfast. He states he has very little pain at this time. He feels ready [place] [facility]. He denies any chest pain, shortness of breath, nausea, vomiting, abdominal pain, or headache. No other complaints. Review of Systems Review of Systems: Unchanged from yesterday. Physical Exam Physical Exam: Well-developed, well-nourished, elderly male, in no acute distress. Sitting in a chair eating his breakfast. Alert and oriented. Conversive. Skin: Warm and dry with good turgor. No rashes. Postsurgical dressings are in place. Upon removal, he has expected postoperative edema. No ecchymosis. There is a small amount of dried blood on his inner dressings. No active bleeding at this time. Manasa are intact. Wound edges are well approximated. Musculoskeletal: Patient has intact motor function of his ankle, knee, and hip. He has knee flexion to 70 degrees. Full terminal extension. He is able to perform a straight leg raise. Neurologic: Gross sensation is intact across the right leg by soft touch. Perip heral pulses are 2+. Results & Data ([facility]) Vital Signs (Past 12 Hours) Vital Signs Temp Pulse Resp BP BP Pulse Ox O2 Del Method 03/18/22 07:52 36.7 C 67 16 144/77 H 97 Room Air 03/18/22 04:00 36.9 C 88 18 139/83 99 Room Air 03/18/22 00:00 36.8 C 61 18 116/73 97 Room Air Laboratory Results CBC obtained today shows a white count of 13.1. Hemoglobin and hematocrit 11.5 and 33.1. Platelets 182,000. PRP is unremarkable. INR is 1.1.
[2022-03-18] MEDS ORDERED: ORTHO WARFARIN NOMOGRAM SCH (14:00)
[2022-03-18] MEDS ORDERED: WARFARIN SOD 5 MG TAB PO SCH (16:00)
--- NOTE | 2022-03-18 18:57 | Operative Report (OR) ---
ADDENDUM: An data assistant was needed for this case. Patrick Burgess PA-C was present. No fellow or resident was av ailable Patrick was present during the entire case. Job ID: [id number]
== END 2022-03-18 13:28 ==
LOC: ASU 06:33 → PACUINP 06:33 → 3E 13:39

== ENCOUNTER 2023-03-09 05:08 | Observation (INO) ==
--- NOTE | 2023-03-03 13:54 | Anesthesiology Consultation ---
Date of Service March 03, 2023 Assessment & Plan (1) Encounter for pre-operative examination: Plan - will request most recent Dr. Chang PCP office note. - check coags STAT am DOS. 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 - Outpatient joint assessment: Patient is currently scheduled for inpatient pathway. If re-evaluated and patient/surgeon requests outpatient pathway, patient is not recommended candidate for outpatient joint program from anesthesia standpoint. Chart Review Chart Review: Pending: Refer to Additional Notes / Consult section and Patient NOT seen in Pre Admission Testing History Surgery Operation Date: 03/09/23 07:00 Proposed Procedures p Left Total Shoulder Arthroplasty versus Cuff Tear Arthroplasty - Walter Fried MD Height/Weight Height: 5 ft 9 in Weight: 70.307 kg Allergies Allergy/AdvReac Type Severity Reaction Status Date / Time No Known Drug Allergies Allergy Unknown . Verified 03/03/23 13:22 Medications Home Medications Medication Instructions Recorded Confirmed Last Taken acetaminophen 500 mg tablet 1,000 mg PO Q6H PRN Pain 02/22/22 03/03/23 03/16/22 23:00 aspirin 81 mg tablet,delayed 81 mg PO QAM 02/22/22 03/03/23 03/17/22 06:00 release lisinopril 5 mg tablet 5 mg PO QAM 02/22/22 03/03/23 03/16/22 09:00 metoprolol succinate 25 mg 25 mg PO QAM 02/22/22 03/03/23 03/17/22 06:00 tablet,extended release 24 hr multivitamin 1 tab PO QAM 02/22/22 03/03/23 03/16/22 09:00 omega-3 fatty acids-vitamin E 1 cap PO QAM 02/22/22 03/03/23 03/03/22 1,000 mg capsule tamsulosin 0.4 mg capsule 0.4 mg PO HS 02/22/22 03/03/23 03/15/22 valacyclovir 500 mg tablet 500 mg PO BID PRN Cold Sores 02/22/22 03/03/23 Unknown (Valtrex) oxycodone-acetaminophen 5 mg-325 2 tab PO Q6H PRN pain #20 tabs 03/18/22 03/03/23 Unknown mg tablet (Percocet) warfarin 2 mg tablet 4 mg PO DAILY #60 tabs 03/18/22 03/03/23 Unknown atorvastatin 40 mg tablet 40 mg PO HS 03/03/23 03/03/23 Unknown glucosamine sulfate 750 mg tablet 750 mg PO DAILY 03/03/23 03/03/23 Unknown Past Medical History Medical History (Updated 03/03/23 @ 13:51 by Shiloh Reed PA-C) History of BPH History of COVID-19 04/2021 (home test), Mild cold symptoms > resolved History of Mohs micrographic surgery for skin cancer Near nose Hx of hearing loss B/L hearing aids Hyperlipemia Hypertension 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, right sided decreased sensitivity Past Surgical History Surgical History History of dental surgery Multiple bridges History of total knee replacement Right Total Knee Arthroplasty History of total right hip arthroplasty 2007 Hx of cataract extraction R/L Hx of colonoscopy Hx of inguinal hernia surgery R/L Social History Smoking Status: Never smoker Do You Dip or Chew Tobacco: No Hx Alcohol Use: Yes Alcohol type: beer, wine and hard liquor alcohol intake frequency: 0-2 drinks per day Hx Substance Use: No substance use type: does not use Lab Results Anesthesia Preop Results Results Anesthesia Widget: WBC 7.80 K/ul (4.8-10.8) 02/24/23 Hgb 12.5 g/dl (14.0-18.0) L 02/24/23 Hct 35.9 % (42.0-52.0) L 02/24/23 Plt 198 K/uL (130-400) 02/24/23 Na 138 mmol/L (136-145) 02/24/23 K 4.1 mmol/L (3.5-5.1) 02/24/23 Cl 106 mmol/L (98-107) 02/24/23 CO2 25 mmol/L (21-32) 02/24/23 BUN 24 mg/dl (6-23) H 02/24/23 Creat 1.14 mg/dl (0.6-1.4) 02/24/23 Glucose Level 88 mg/dl (70-99(Fasting)) 02/24/23 PT 10.9 Seconds (9.0-12.0) 02/24/23 PTT 27.3 Seconds (21.0-31.0) 02/24/23 INR 1.0 (0.9-1.1) 02/24/23 Urine Color Yellow 02/24/23 Urine Appearance Clear (Clear) 02/24/23 Urine pH 5.0 (4.5-7.5) 02/24/23 Urine Specific [place] 1.011 (1.000-1.030) 02/24/23 Urine Protein Negative (Negative) 02/24/23 Urine Glucose (UA) Negative (Negative) 02/24/23 Urine Ketones Negative (Negative) 02/24/23 Urine Blood Negative (Negative) 02/24/23 Urine Nitrite Negative (Negative) 02/24/23 Urine Bilirubin Negative (Negative) 02/24/23 Urine Urobilinogen Negative (Negative) 02/24/23 Urine Leukocyte Esterase Negative (Negative) 02/24/23 Blood Type B Positive 02/24/23 Antibody Screen NEGATIVE 02/24/23 Testing Electrocardiogram Date: 02/24/23 Sinus bradycardia, rate 54 bpm Chest X-Ray Date: 02/24/23 No acute process
[2023-03-09] MEDS ORDERED: ceFAZolin 2000MG 2,000 MG/15 ML SYR IV SCH (06:00)
[2023-03-09] MEDS ORDERED: LR 60ML/HR IV SCH (06:00)
[2023-03-09] MEDS ORDERED: LR 15ML/HR IV SCH (06:00)
[2023-03-09] MEDS ORDERED: TRANEXAMIC ACID 1,000 MG x 1 **For Topical Use Intraop TOP SCH (06:00)
[2023-03-09] MEDS ORDERED: BUPIVACAINE 0.5 % 5 MG/1 ML PF 10ML VIAL ONE (06:22)
--- NOTE | 2023-03-09 06:25 | History & Physical Bridge Note ---
Date of Service March 09, 2023 History & Physical Bridge Note I have examined the patient, reviewed the History & Physical and in the interval since the performance of the History & Physical I have noted the following changes of clinical significance:consent obtained/site verified/rediscussed the options of partial vs TSA based on condition of the rotator cuff. no other changes noted.
[2023-03-09] MEDS ORDERED: ATROPINE SULFATE 0.1 MG/ML 10ML SYR IV PRN (06:32)
[2023-03-09] MEDS ORDERED: fentaNYL citrate PF 100 MCG/2 ML VIAL IV PRN (06:32)
[2023-03-09] MEDS ORDERED: ONDANSETRON INJ 2 MG/ML 2 ML VIAL IV PRN ×2 (06:32→10:38)
[2023-03-09] MEDS ORDERED: ePHEDrine sulfate 50 MG/ML AMP IV PRN (06:32)
[2023-03-09] MEDS ORDERED: fentaNYL citrate PF 100 MCG/2 ML VIAL ONE (06:34)
[2023-03-09] MEDS ORDERED: LIDOCAINE 2% 2 ML VIAL/AMP(20MG/ML) INFIL ONE (06:41)
[2023-03-09] MEDS ORDERED: PROPOFOL IV EMULSION 10 MG/ML 20 ML VIAL IV ONE (06:41)
[2023-03-09] MEDS ORDERED: DEXAMETHASONE SOD INJ 4 MG/ML VIAL ONE ×2 (06:41)
[2023-03-09] MEDS ORDERED: ONDANSETRON INJ 2 MG/ML 2 ML VIAL ONE (06:41)
[2023-03-09] MEDS ORDERED: ROCURONIUM BROMIDE 10 MG/ML 5 ML VIAL IV ONE ×5 (06:42)
[2023-03-09] MEDS ORDERED: THROMBIN FOR SOLN 20000 UNIT KIT ONE (06:55)
[2023-03-09 06:59] LABS: Partial Thromboplastin Time 28.5 Seconds (21.0-31.0); Prothrombin Time 10.8 Seconds (9.0-12.0)
[2023-03-09] MEDS ORDERED: hydrALAZINE HCL 20 MG/ML VIAL ONE (07:15)
[2023-03-09] MEDS ORDERED: ePHEDrine sulfate 50 MG/5 ML SYR ONE (07:17)
[2023-03-09] MEDS ORDERED: SUGAMMADEX SODIUM 200 MG/2 ML VIAL IV ONE (07:39)
[2023-03-09] MEDS ORDERED: ePHEDrine sulfate 50 MG/ML AMP ONE (08:19)
--- NOTE | 2023-03-09 09:04 | Post Operative Brief Note ---
Immediate Post Op Note v1 Date of Surgery March 09, 2023 Pre & Post Diagnosis Operation Date: 03/09/23 07:00 Pre-Op Diagnosis: Left Shoulder Osteoarthritis Post-Op Diagnosis: Left Shoulder Osteoarthritis I identified the patient and participated in the time-out.: Yes Procedure Operation Date: 03/09/23 07:00 Actual Procedures p Left Total Shoulder Arthroplasty(Left) - Walter Fried MD Surgeon Walter Fried MD Snaker Driving Horses [place]/Aditya Estimated Blood Loss 100 Findings Consistent with Post-Op Diagnosis Severe osteoarthritis marked joint space narrowing multiple subchondral cyst humeral head Fluids 900 cc Complications None
--- NOTE | 2023-03-09 09:10 | Operative Report ---
Post Operative Report Pre & Post Diagnosis Operation Date: 03/09/23 07:00 Pre-Op Diagnosis: Left Shoulder Osteoarthritis Post-Op Diagnosis: Left Shoulder Osteoarthritis I identified the patient and participated in the time-out.: Yes Procedure Operation Date: 03/09/23 07:00 Actual Procedures p Left Total Shoulder Arthroplasty(Left) - Walter Fried MD Surgeon Walter Fried MD Leak Gang Supervisor CLAYTON/Aditya Estimated Blood Loss 100 Findings Consistent with Post-Op Diagnosis Severe osteoarthritis marked subchondral cyst formation contracted capsule intact rotator cuff Fluids 900 cc Specimens Bone pathology Drains None Complications None Indications Severe pain marked obstruction on x-ray Description of Procedure After the patient was appropriate notified site verified consent verified antibiotics confirmed as being given patient was examined revealing limitations of external rotation beyond 20 degrees. He forward flex to about 100 degrees abduction about 80 degrees. He was then placed carefully beachchair position left upper extremity prepped and draped use routine fashion. Care taken to pad all prominences and protect his eyes. His neck was in a good position. Deltopectoral approach was then made. The vein was retracted laterally with the deltoid clavipectoral fascia was opened and retractors placed the subscapularis was then released off the bone the biceps was tenodesed in situ. Humeral head was resected and then revised once. Appropriate exposure was obtained the capsule was excised around the glenoid. Seating well was then made centrally and then the drill holes placed for the glenoid component. The glenoid component was a 48 it was anchor peg glenoid tremor on X-linked PE once the trial fit well the permanent was cemented in position with the cement being placed only on the 3 holes not on the centralizing hole. After 14 minutes area was irrigated inspected there was nothing loose to the glenoid was well fixed. On the humerus exposure was obtained by extending the arm and externally rotating the proximal humerus was then prepared with the serial reaming up to a size 12 broaches were then placed 10 and 12 fit well. Trial reduction 1 4821 eccentric head gave the best positioning. All trial implants were then removed after stabilization was verified with good 50% subluxation posteriorly and no dislocation anteriorly with the arm externally rotated 45 to 50 degrees and 90 degrees abducted. Trial implants were again removed and the irrigated with TXA for a couple minutes and then Betadine for couple minutes then the permanent drill holes were placed for the sutures to repair the subscap this was placed through bone there were 2-3 drill holes placed with 3 separate sutures. These were #2 Ethibonds. Once this was all prepared to the stem was then impacted into position with the sutures being around the stem to help protect any pullout. Permanent head was then seated and impacted into position after the Belcher taper was cleaned and and the shoulder reduced it was nice and stable the subscap was then repaired with 3 sutures that were placed before multiple passes through the tendon with an excellent repair of the rotator interval was closed with a #1 Vicryl. Wound the wound was irrigated 1 final time and then closed with 2-0 Vicryl and stainless steel clips appropriate dressing applied the patient transferred recovery in satisfactory addition he tolerated the procedure well. EBL was 100 cc crystalloid 900 cc bone pathology pending DVT prophylaxis with mobilization placed in a sling. Summary of implants 48 glenoid DePuy [employer]ynthes cemented anchor peg glenoid primer on cross-linked size 4845 degree 12 proximal body anatomic proximal body for "global unite stem 12 standard 48x21 eccentric head this was all again De[employer]ynthe[employer]. EBL again as noted 100 cc crystalloid per anesthesia 900 cc. Bone pathology pending. DVT prophylaxis with mobilization. We will start therapy tomorrow with 40 degrees of abduction 40 degrees of forward flexion no extension and 20 to 30 degrees of external rotation elbow hand function as tolerated. I attest to the content of the Intraoperative Record and any orders documented therein. Any exceptions are noted below.
--- NOTE | 2023-03-09 09:13 | Discharge Summary ---
Date of Service March 10, 2023 Admission HPI Per Admitting Provider Left shoulder pain Principal Diagnosis Left shoulder osteoarthritis Discharge Data Allergies Allergy/AdvReac Type Severity Reaction Status Date / Time No Known Drug Allergies Allergy Unknown . Verified 03/09/23 05:56 Vaccinations None Consultations None Procedures Performed Operation Date: 03/09/23 07:00 Actual Procedures p Left Total Shoulder Arthroplasty(Left) - Walter Fried MD Ordered Studies 03/09/23 05:00 US - OR guided needle placemen Routine Hospital Course (1) History of total replacement of left shoulder joint: Plan Discharge tomorrow after spending the night here Total Time Total Time Spent Total Time Spent (In Minutes): 10 minutes Discharge Plan Discharge Items Patient Disposition: Home - Self-Care Reason For Visit: Left Shoulder Osteoarthritis Discharge Diagnosis: Left shoulder s/p total shoulder replacement Condition on Discharge: Good Activity: Per Instructions section Lifting: Wait until after follow-up appointment Bathing: Keep incision dry Sexual Activity: Wait until after follow-up appointment Exercise/Sports: Wait until after follow-up appointment Driving/Machine Use: No driving until cleared by Dr. Fried Non-emergency contact: Surgeon Call non-emergency contact if: you have any medication questions, your pain is not controlled, your temperature is above 101.5, your wound has increased redness, your wound has increased drainage and your wound pain has increased [facility] - Diet: Regular Addtl Attending Provider Instructions: The following are instructions to follow after "Shoulder Surgery" ACTIVITY RECOMMENDATIONS: * Minimize activity after surgery. * No excessive walking, jogging, sports or laboring. * Return to activity is individualized depending on the patient and type of surgery. * Driving is not permitted until at least your first post operative visit. Please ask your doctor when it is safe to resume driving. * Expect increased discomfort with increased activity. Continue to ice the shoulder as needed. SCHOOL/WORK RECOMMENDATIONS: * You may return to sedentary work or school when you are feeling more comfortable. This is usually 3-7 days after surgery. MEDICATIONS: * You will have a prescription for pain medication after surgery. * Use the pain medication for severe pain. Once the pain medication has run out, try to use over the counter medication. If this is not effective, contact the office for assistance. * The pain medication may cause nausea, constipation and drowsiness. You should see how they affect you before driving or similar activity. * Take a stool softener like Colace or a laxative like Senokot to prevent constipation. DIET: * Resume previous diet. SPECIAL CARE: ICE: You have the option of gel packs or ice bags. . Do not apply ice directly to the skin. Use a thin dressing or marisa shirt between the skin and ice bag. Apply ice for 20-30 minutes and repeat every 2-4 hours. This is especially important for the first 7-10 days after surgery. Once the pain improves, use ice as needed. ELEVATION: * You may be more comfortable sleeping in an upright position. Use the sling to elevate your arm. DRESSING: * Your dressing will be changed at your first therapy appointment 1 day after surgery. Band-aids, tape strips or gauze may be applied. You may then change your dressing daily. * Reapply dressing followed by the sling. * Always wash your hands prior to touching the incision area. * Once the stitches are removed, you may leave the wound open to air or cover with gauze. * Expect some bloody drainage for the first few days after surgery. * Leave the tape strips, if present, in place for 5-7 days. * Band-aids and gauze may be changed daily. * There may be a gauze pad in your armpit area. This can be changed daily or replaced by a dry washcloth. SLING/BRACE: * You will need to use a sling or brace after surgery. The length of time the sling is used is dependent upon the type of surgery performed. * Arthroscopic Acromioplasty requires use of the sling for 2-4 weeks for comfort. * Labral procedures and Rotator Cuff Repairs require use of the sling for a longer period of time. Please check with your doctor prior to discontinuing the sling. BATHING: * You may shower or sponge-bathe immediately after surgery. The post operative shoulder dressing is mostly water-tight. You may shower right over this dressing, but be reasonably careful not to get the gauze or incision wet. * Wash with regular soap and water. * Do not bathe (submerge the incision), soak, swim or use a hot tub until the incision is completely healed over with normal skin and the doctor has given the OK to proceed. * There is no need to apply any ointments, powders or salves to your incision. * Do not apply alcohol or hydrogen peroxide directly to the incision. * Diluted peroxide (50:50 mixture with sterile saline) may be used to clean dried blood from around the incision area. THERAPY: * You will begin therapy 1 day after surgery. * Organized therapy with the therapist is important for the first 2-4 months after surgery depending on the type of procedure. During that time you will attend therapy 1-3 times per week. * You will also need to do daily exercises for range of motion and strength as instructed. * Patients having Rotator Cuff Surgery are not allowed to actively lift their arms until 4-6 weeks after surgery. * Please check with your doctor regarding appropriate motion restrictions. FOLLOW UP VISIT: * If not already scheduled, please call the office at to schedule a follow-up appointment for 10 days after surgery and monthly thereafter. DIET: * Resume previous diet. SPECIAL CARE INSTRUCTIONS: * Ice/Elevate as instructed. * Keep dressing clean, dry, intact. * Your surgical extremity may be discolored due to prepping agents used on the skin. A bluish-green tint is a normal variant and should not cause alarm. Call your doctor at [phone] if: * Temperature above 101 degrees * Pain not relieved by pain medicine ordered * There is increased drainage or redness from any incision * You have any unanswered questions, problems or concerns. FOLLOW UP VISIT: * If not already scheduled, please call the office at to schedule a follow-up appointment. Pending Studies at Discharge: Yes (Bone pathology) Stand-Alone Forms: [facility], Smoking Cessation Medications and DC Order Prescriptions: No Action multivitamin Tablet 1 tab PO QAM valacyclovir [Valtrex] 500 mg Tablet 500 mg PO BID PRN (Reason: Cold Sores) aspirin 81 mg Tablet,Delayed Release (Dr/Ec) 81 mg PO QAM tamsulosin 0.4 mg Capsule 0.4 mg PO HS lisinopril 5 mg Tablet 5 mg PO QAM metoprolol succinate 25 mg Tablet Extended Release 24 Hr 25 mg PO QAM omega-3 fatty acids-vitamin E 1,000 mg Capsule 1 cap PO QAM acetaminophen 500 mg Tablet 1,000 mg PO Q6H PRN (Reason: Pain) atorvastatin 40 mg Tablet 40 mg PO HS glucosamine sulfate [Glucosamine] 750 mg Tablet 750 mg PO DAILY Rx Instructions: administer with a meal Discharge Orders: Discharge Order (Routine); Ordered 03/10/23 Ordered By: Walter Fried Admission Data Admit Date/Time: 03/09/23 09:30 Attending Provider: Walter Fried Admit Provider: Walter Fried Primary Care Provider: [facility]
--- NOTE | 2023-03-09 09:14 | Orthopedic Progress Note ---
Date of Service March 09, 2023 Assessment & Plan (1) History of total replacement of left shoulder joint: Plan Discharge tomorrow after spending the night here Orthopedic Progress Note Tolerated procedure well at this point time is waking up from anesthesia as block is in place is no major pain or bleeding. X-rays pending. Continue with care pathway. Does well overnight discharge to home tomorrow. His home is in the assisted living center. Case management to review.
--- NOTE | 2023-03-09 09:23 | Operative Report ---
Post Operative Report Pre & Post Diagnosis Operation Date: 03/09/23 07:00 Pre-Op Diagnosis: Left Shoulder Osteoarthritis Post-Op Diagnosis: Left Shoulder Osteoarthritis I identified the patient and participated in the time-out.: Yes Procedure Operation Date: 03/09/23 07:00 Actual Procedures p Left Total Shoulder Arthroplasty(Left) - Walter Fried MD Surgeon MARLEEN Fried MD Waiter/Waitress Formal CLAYTON/Aditya TERESA Estimated Blood Loss 100 Findings Consistent with Post-Op Diagnosis see operative report Specimens see operative report Drains none Complications none Disposition Accompanied Patient To Recovery: Yes Indications This 87 year old male presented to the office complaints of persisting left shoulder pain. He had tried conservative care measures without improvement. He elected to proceed with surgical intervention after being educated about potential risks and outcomes. Preoperative imaging was obtained. Description of Procedure The patient was administered a regional block and then taken to the operating room where he was given general anesthesia. He was prepped and draped in the usual sterile fashion. Please see Dr. Fried's operative report for specifics of the procedure. I was present for the entire case from initial patient positioning through final wound closure. Assistance was provided in tissue retraction, hemostasis, trial implant placement, final implant placement, and final wound closure. The patient was taken to the recovery room in satisfactory condition. I attest to the content of the Intraoperative Record and any orders documented therein. Any exceptions are noted below.
--- NOTE | 2023-03-09 09:34 | Operative Report ---
Post Operative Report Pre & Post Diagnosis Operation Date: 03/09/23 07:00 Pre-Op Diagnosis: Left Shoulder Osteoarthritis Post-Op Diagnosis: Left Shoulder Osteoarthritis I identified the patient and participated in the time-out.: Yes Procedure Operation Date: 03/09/23 07:00 Actual Procedures p Left Total Shoulder Arthroplasty(Left) - Walter Fried MD Surgeon Walter Fried MD Clock Maker CLAYTON/Aditya TERESA Estimated Blood Loss 100 Findings Consistent with Post-Op Diagnosis Same as postoperative diagnosis. Specimens None Description of Procedure Please see detailed operative note. I attest to the content of the Intraoperative Record and any orders documented therein. Any exceptions are noted below.
--- NOTE | 2023-03-09 10:07 | Anesthesiology Progress Note ---
Date of Service March 09, 2023 Anesthesia Post Procedure Vital Signs Vital Signs: Temp Pulse Resp BP Pulse Ox O2 Del Method O2 Flow Rate 03/09/23 10:00 98.2 F 70 20 137/85 98 Room Air 03/09/23 09:50 73 16 132/87 98 Oxymask 3 03/09/23 09:40 71 22 134/89 97 Oxymask 5 03/09/23 09:20 96.8 F L 65 16 125/69 98 Oxymask 8 03/09/23 05:55 98.1 F 58 L 20 154/83 H 97 Room Air Pain Intensity Left Shoulder: Pain Intensity: 0 Transfer of Care Handoff Completed per policy Notes Mental Status: alert / awake / arousable and participated in evaluation Patient Amnestic to Procedure: Yes Nausea / Vomiting: adequately controlled Pain: adequately controlled Airway Patency, RR, SpO2: stable & adequate BP & HR: stable & adequate Hydration State: stable & adequate Anesthetic Complications: no major complications apparent and Pt Satisfied with anesthetic care
[2023-03-09] MEDS ORDERED: NALOXONE HCL 0.4 MG/1 ML VIAL/CARP IV PRN (10:38)
[2023-03-09] MEDS ORDERED: diphenhydrAMINE 50 MG/ML VIAL IV PRN (10:38)
[2023-03-09] MEDS ORDERED: MAGNESIUM HYDROXIDE SUSP 30 ML UDC PO PRN (10:38)
[2023-03-09] MEDS ORDERED: VANCOMYCIN CONSULT ACTIVE PRN (10:38)
[2023-03-09] MEDS ORDERED: bisacodyL 10 MG SUPP PR PRN (10:38)
[2023-03-09] MEDS ORDERED: ALUMINUM/MAGNESIUM SUSP 30 ML UDC PO PRN (10:38)
[2023-03-09] MEDS ORDERED: HYDROmorphone INJ 0.5 MG/0.5 ML SYR IV PRN (10:38)
[2023-03-09] MEDS ORDERED: oxyCODONE HCL IR 5 MG TAB (IMMEDIATE RELEASE) PO PRN (10:38)
[2023-03-09] MEDS ORDERED: SODIUM CHLORIDE 0.9% 1,000 ML IV SCH (10:38)
[2023-03-09] MEDS ORDERED: METOCLOPRAMIDE HCL INJ 5 MG/ML 2 ML VIAL IV PRN (10:38)
[2023-03-09] MEDS ORDERED: VANCOMYCIN HCL 1,000 MG in SODIUM CHLORIDE 0.9% 500 ML IV ONE (11:00)
[2023-03-09] MEDS ORDERED: VANCOMYCIN HCL 1,000 MG in SODIUM CHLORIDE 0.9% 250 ML IV ONE (11:15)
[2023-03-09] MEDS: KETOROLAC TROMETHAMINE 15 MG/ML VIAL IV SCH ×3 (12:29→22:45)
--- NOTE | 2023-03-09 13:02 | XRay Report ---
SINGLE VIEW LEFT SHOULDER CLINICAL HISTORY: Postoperative examination. FINDINGS: A single portable view of the left shoulder is compared to study dated 10/04/2022. The skele amber structures are osteopenic. A left shoulder arthroplasty is in near anatomic alignment. There is n o radiographic evidence of acute fracture on this single view. Skin clips, subcutaneous gas, and soft tissue swelling overlying the left shoulder are expected postsurgical changes. Productive degenerati ve change is noted at the acromioclavicular joint. The visualized left lung parenchyma appears clear noting basilar atelectasis. IMPRESSION: Expected postsurgical findings status post left shoulder arthroplasty. No acute fracture is seen. Electronically signed by: Farhan Cole M.D. 03/09/2023 1:01 PM
--- NOTE | 2023-03-09 14:44 | Orthopedic Progress Note ---
Date of Service March 09, 2023 Assessment & Plan (1) History of total replacement of left shoulder joint: Plan Discharge tomorrow after spending the night here Admission and Anticipated Discharge Date Admission Date: March 09, 2023 Orthopedic Progress Note Seen this afternoon is doing well sitting up. Denies any chest pain shortness of breath fever chills nausea vomiting or headache. Block is working well. He does have some hand function. Blood flow to his hand is excellent. Wound dressing clean dry and intact intact. X-rays look excellent. Continue doing care pathway for this total shoulder replacement. Discharge tomorrow morning will have dressing change done in the office by the physical therapy unit. Tolerated procedure well at this point time is waking up from anesthesia as block is in place is no major pain or bleeding. X-rays pending. Continue with care pathway. Does well overnight discharge to home tomorrow. His home is in the assisted living center. Case management to review.
[2023-03-09] MEDS: ceFAZolin 2000MG 2,000 MG/15 ML SYR IV SCH ×2 (15:00→22:46)
[2023-03-09] MEDS: ACETAMINOPHEN 500 MG TAB PO SCH ×2 (15:00→22:45)
[2023-03-09] MEDS: ASCORBIC ACID 500 MG TAB PO SCH (18:07)
[2023-03-09] MEDS: FERROUS GLUCONATE 324 MG TAB PO SCH (18:07)
[2023-03-09] MEDS: DOCUSATE SODIUM 100 MG CAP PO SCH (20:05)
[2023-03-09] MEDS ORDERED: SENNA 8.6 MG TAB PO SCH (21:00)
[2023-03-09] MEDS ORDERED: TAMSULOSIN HCL 0.4 MG CAP PO SCH (21:00)
[2023-03-09] MEDS ORDERED: ATORVASTATIN 40 MG TAB PO SCH (21:00)
[2023-03-10] MEDS: ACETAMINOPHEN 500 MG TAB PO SCH (05:53)
[2023-03-10] MEDS: KETOROLAC TROMETHAMINE 15 MG/ML VIAL IV SCH (05:54)
--- NOTE | 2023-03-10 06:38 | Orthopedic Progress Note ---
Date of Service March 10, 2023 Assessment & Plan Admission and Anticipated Discharge Date Admission Date: March 09, 2023 Orthopedic Progress Note Postop day #1 status post left total shoulder replacement. Patient is up walking around in the room. Getting ready for discharge. He denies any chest pain shortness of breath fever chills nausea vomiting or headache. Notes that he still has some numbness and weakness in his arm based on the block. Exam today reveals wound dressing clean dry and intact neurovascular check upper extremity reveals intact extension of digits and wrist flexion of wrist has weak biceps weak elbow triceps extension weak abduction. Has a sensory function of the axillary nerve. Assessment status post total shoulder replacement. Block is starting to wear off. At this point in time we will have him discharged, no outpatient PT have his dressing changed there. Follow-up in 2 weeks for staple removal. Advised concerning how to don and doff shirt.
[2023-03-10 06:46] LABS: Basophils # (auto) 0.01 K/uL (0.00-0.20); Basophils % (auto) 0.1 %; Hematocrit (blood only) 32.3 % (42.0-52.0); Hemoglobin 11.2 g/dl (14.0-18.0); Immature Granulocytes # (auto) 0.06 K/uL (0.01-0.20); Immature Granulocytes % (auto) 0.5 %; Lymphocytes # (auto) 1.09 K/uL (1.20-3.40); Lymphocytes % (auto) 9.4 %; Mean Corpuscular Hemoglobin 33.8 pg (25.0-34.0); Mean Corpuscular Hgb Conc 34.7 g/dL (32.0-36.0); Mean Corpuscular Volume 97.6 fL (80.0-100.0); Mean Platelet Volume 9.8 fL (9.4-12.4); Monocytes # (auto) 1.15 K/uL (0.11-0.59); Neutrophils # (auto) 9.23 K/uL (1.40-6.50); Platelet Count 154 K/uL (130-400); RDW Coefficient of Variation 11.2 % (11.5-14.5); RDW Standard Deviation 39.9 fL (36.4-46.3); Red Blood Count 3.31 M/uL (4.70-6.10); White Blood Count 11.54 K/ul (4.8-10.8)
[2023-03-10 07:08] LABS: BUN Creatinine Ratio 21.7 (10-20); Calcium 8.5 mg/dl (8.6-10.3); Creatinine Clr Calc Pharmacy 46.1 ml/min; Est GFR (African American) 66.4 ml/min; Est GFR (Non-African American) 57.3 ml/min; Potassium 4.2 mmol/L (3.5-5.1)
[2023-03-10] MEDS: ASCORBIC ACID 500 MG TAB PO SCH (07:26)
[2023-03-10] MEDS: FERROUS GLUCONATE 324 MG TAB PO SCH (07:26)
[2023-03-10] MEDS ORDERED: dexAMETHasone 10 MG in SYRINGE 0 ML IV SCH (08:00)
[2023-03-10] MEDS: DOCUSATE SODIUM 100 MG CAP PO SCH (08:00)
--- NOTE | 2023-03-10 08:37 | Orthopedic Progress Note ---
Date of Service March 10, 2023 Assessment & Plan (1) History of total replacement of left shoulder joint: Plan: The patient was educated regarding today's findings. Conservative care measures were discussed. He will be discharged to home today. He will stop at the office for physical therapy prior to going home, and we will change his postsurgical dressing there. Continue Tylenol every 6 hours as needed for mild discomfort. Prescription for Outlook 5 mg was sent to his pharmacy, to be used for more severe pain. Continue wearing the sling at all times other than bathing and therapy. Passive motion of the shoulder only at this point. Written discharge instructions were provided. Continue his JORGE hose for the next 6 weeks. He has already resumed his aspirin. Follow-up in the office in 2 weeks as scheduled with Patrick for staple removal. Admission and Anticipated Discharge Date Admission Date: March 09, 2023 Subjective This 87-year-old male is seen today in his room. He is 1 day status post left total shoulder arthroplasty. He states he is doing fine. He has no pain. He is a little concerned that he still does not have normal sensation or strength in his left arm after the block. He feels ready for discharge and is heading to the office at 9 AM for his first PT appointment. He denies any chest pain, shortness of breath, nausea, vomiting, or abdominal pain. Review of Systems Review of Systems: Unchanged from yesterday. Physical Exam Physical Exam: General: Well-developed, well-nourished, elderly male, in no acute distress. Sitting in a chair. Alert and oriented. Eating his breakfast. Skin: Warm and dry with good turgor. No rashes. Postsurgical dressings are in place on the left shoulder. They were not disturbed. Musculoskeletal: The patient has intact motor function of his left wrist and digits. He has full flexion and extension as well as supination and pronation of the wrist. Full flexion and extension of the digits including the thumb. Normal strength for these. He has weak elbow contraction for the bicep and extension for the tricep. Shoulder motion was not attempted. Neurologic: The patient has decreased subjective sensation across the forearm, wrist, hand, and digits. Sensation is clearly intact, but it is just different than the noninvolved side. Peripheral pulses are 2+. Results & Data Vital Signs (Past 12 Hours) Vital Signs Temp Pulse Pulse Resp BP Pulse Ox O2 Del Method 10/19/23 07:36 36.6 C 62 18 111/70 96 Room Air 03/10/23 06:07 36.4 C L 84 61 18 143/73 H 98 03/10/23 05:59 36.4 C L 61 18 143/73 H 98 Room Air 03/10/23 03:20 36.6 C 65 16 111/65 96 Room Air 03/09/23 22:48 36.4 C L 57 L 18 135/82 97 Room Air Laboratory Results CBC obtained today shows a white count of 11.5. H&H of 11.2 and 32.3. Platelets normal at 154,000. Sodium 136, potassium 4.2, CO2 25, anion gap normal at 6. BUN of 25. Creatinine 1.15. Glucose 121 this morning. Calcium 8.5.
[2023-03-10] MEDS ORDERED: METOPROLOL SUCC 25MG EXT REL TAB PO SCH (09:00)
[2023-03-10] MEDS ORDERED: ASPIRIN 81 MG ECTAB PO SCH ×2 (09:00)
[2023-03-10] MEDS ORDERED: lisinopril 5 MG TAB PO SCH (09:00)
[2023-03-10] MEDS ORDERED: MULTIVITAMIN TAB PO SCH (09:00)
--- NOTE | 2023-03-15 11:46 | Post Operative Brief Note ---
Immediate Post Op Note v1 Date of Surgery March 09, 2023 Pre & Post Diagnosis Operation Date: 03/09/23 07:00 <No data on this note was done before not sure why this was here this case meets the specified criteria> I identified the patient and participated in the time-out.: Yes Procedure Oper note was done for ation Date: 03/09/23 07:00 <No data on this case meets the specified criteria> Surgeon Walter Fried MD Soap Tender CLAYTON/Aditya Estimated Blood Loss 100 Findings Consistent with Post-Op Diagnosis This note was done before
== END 2023-03-10 08:59 | disposition home or self-care (01) ==
LOC: 3E 05:08 → ASU 05:08

== ENCOUNTER 2024-02-15 06:28 | Observation (INO) ==
--- NOTE | 2024-01-18 10:12 | PAT Medication Instructions ---
Medication Instructions Date of Service January 18, 2024 Home Medications acetaminophen 500 mg tablet 1,000 mg PO Q6H PRN aspirin 81 mg tablet,delayed release 81 mg PO QAM metoprolol succinate 25 mg tablet,extended release 24 hr 25 mg PO QAM multivitamin 1 tab PO QAM omega-3 fatty acids-vitamin E 1,000 mg capsule 1 cap PO QAM tamsulosin 0.4 mg capsule 0.4 mg PO HS valacyclovir 500 mg tablet (Valtrex) 500 mg PO BID PRN atorvastatin 40 mg tablet 40 mg PO HS clindamycin HCl 300 mg capsule 600 mg PO DAILY lisinopril 20 mg tablet 20 mg PO QAM Continue as directed clindamycin HCl 300 mg capsule 600 mg PO DAILY ASK your prescriber and surgeon aspirin 81 mg tablet,delayed release 81 mg PO QAM STOP taking 2 weeks before surgery (or as soon as possible if surgery is within 2 weeks) omega-3 fatty acids-vitamin E 1,000 mg capsule 1 cap PO QAM DO NOT take the morning of surgery multivitamin 1 tab PO QAM lisinopril 20 mg tablet 20 mg PO QAM Take morning of surgery With a small sip of water, OTHERWISE NOTHING TO EAT OR DRINK AFTER MIDNIGHT: acetaminophen 500 mg tablet 1,000 mg PO Q6H PRN(if needed) valacyclovir 500 mg tablet (Valtrex) 500 mg PO BID PRN(if needed) metoprolol succinate 25 mg tablet,extended release 24 hr 25 mg PO QAM Take evening before surgery acetaminophen 500 mg tablet 1,000 mg PO Q6H PRN(if needed) valacyclovir 500 mg tablet (Valtrex) 500 mg PO BID PRN(if needed) tamsulosin 0.4 mg capsule 0.4 mg PO HS atorvastatin 40 mg tablet 40 mg PO HS Other Notes If you have any questions please call us at [phone] or [phone] or [phone] or [phone]
--- NOTE | 2024-01-26 15:00 | Anesthesiology Consultation ---
Date of Service January 26, 2024 Assessment & Plan (1) Encounter for pre-operative examination: - Infectious disease screening: Per assessment on 01/26/24: No known recent infectious disease contacts or current infectious disease symptoms. - Outpatient joint assessment: Pt currently scheduled for inpatient pathway. If surgeon requests review for outpatient joint pathway, patient is not recommended candidate for outpatient joint program from anesthesia standpoint based on available information. - Patient acceptable risk for surgery pending surgeon-ordered PCP preop evaluation (Dr. Chang/Andressa Mai at [facility], appt 01/31). Chart Review Chart Review: Patient seen in Pre Admission Testing Teaching & Discussion Pre-Anesthesia Teaching/Discussion Notes: Instructed NPO after midnight before surgery,except medications with 15 cc of water. Medication instructions provided according to the PAT guidelines. History Surgery Operation Date: 02/15/24 08:50 Proposed Procedures p Left Total Knee Arthroplasty - Walter Fried MD Height/Weight Height: 5 ft 9 in Weight: 70.1 kg Allergies Allergy/AdvReac Type Severity Reaction Status Date / Time No Known Drug Allergies Allergy Unknown Verified 01/11/24 11:49 cat dander Allergy Sneezing, Verified 01/11/24 11:49 Itchy/Watery Eyes Medications Home Medications Medication Instructions Recorded Confirmed Last Taken acetaminophen 500 mg tablet 1,000 mg PO Q6H PRN Pain 02/22/22 01/11/24 03/08/23 22:00 aspirin 81 mg tablet,delayed 81 mg PO QAM 02/22/22 01/11/24 03/08/23 09:00 release metoprolol succinate 25 mg 25 mg PO QAM 02/22/22 01/11/24 03/09/23 04:45 tablet,extended release 24 hr multivitamin 1 tab PO QAM 02/22/22 01/11/24 03/08/23 09:00 omega-3 fatty acids-vitamin E 1 cap PO QAM 02/22/22 01/11/24 03/08/23 09:00 1,000 mg capsule tamsulosin 0.4 mg capsule 0.4 mg PO HS 02/22/22 01/11/24 03/08/23 22:00 valacyclovir 500 mg tablet 500 mg PO BID PRN Cold Sores 02/22/22 01/11/24 2 Months Ago (Valtrex) ~01/07/23 atorvastatin 40 mg tablet 40 mg PO HS 03/03/23 01/11/24 03/08/23 22:00 clindamycin HCl 300 mg capsule 600 mg PO DAILY 01/11/24 01/11/24 Unknown lisinopril 20 mg tablet 20 mg PO QAM 01/11/24 01/11/24 Unknown Past Medical History Medical History Chronic anemia History of BPH History of COVID-19 04/2021 (home test), Mild cold symptoms > resolved History of Mohs micrographic surgery for skin cancer Near nose Hx of hearing loss B/L hearing aids Hyperlipemia Hypertension 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, right sided decreased sensitivity Exercise / Class Metabolic Activity III < 4 Walking/Shop/Light housework Past Surgical History Surgical History History of arthroplasty of left shoulder Left [facility], [facility] (02/2023) History of dental surgery Multiple bridges History of total knee replacement Right Total Knee Arthroplasty History of total right hip arthroplasty 2007 Hx of cataract extraction bilateral Hx of colonoscopy Hx of inguinal hernia surgery Bilateral Past Anesthesia History No Hx of Anesthesia Complications and No Family Hx of Anesthesia Complications History of PONV No Hx of PONV and No Hx of Motion Sickness Social History Smoking Status: Never smoker Do You Dip or Chew Tobacco: No Hx Alcohol Use: Yes Alcohol type: beer, wine and hard liquor alcohol intake frequency: a few times a week Hx Substance Use: No substance use type: does not use Review of Systems Patient denies chest pain, shortness of breath, fever, chills, cough, wheezing. Physical Exam Vital Signs BP 105/69 P 77 TEMP 98.4 SP02 95%RA RESP 16 Physical Full cervical extension range of motion. Full TMJ range of motion. TMD > 3.5 finger breaths Mallampati Score II Dentition: several missing teeth, + bridges (including upper/lower front + sides) Lungs: clear throughout to auscultation Cardiac: regular rate and rhythm, no murmurs noted Spine: normal Carotid arteries: negative bruit Extremities: no LE edema Lab Results Anesthesia Preop Results Results Anesthesia Widget: WBC 7.65 K/ul (4.8-10.8) 01/26/24 Hgb 12.6 g/dl (14.0-18.0) L 01/26/24 Hct 37.1 % (42.0-52.0) L 01/26/24 Plt 199 K/uL (130-400) 01/26/24 Na 137 mmol/L (136-145) 01/26/24 K 4.2 mmol/L (3.5-5.1) 01/26/24 Cl 107 mmol/L (98-107) 01/26/24 CO2 25 mmol/L (21-32) 01/26/24 BUN 30 mg/dl (6-23) H 01/26/24 Creat 1.27 mg/dl (0.6-1.4) 01/26/24 Glucose Level 93 mg/dl (70-99(Fasting)) 01/26/24 PT 10.7 Seconds (9.0-12.0) 01/26/24 PTT 27 Seconds (21-31) 01/26/24 INR 1.0 (0.9-1.1) 01/26/24 Urine Color Dark Yellow 01/26/24 Urine Appearance Clear (Clear) 01/26/24 Urine pH 5.0 (4.5-7.5) 01/26/24 Urine Specific Stowell 1.032 (1.000-1.030) H 01/26/24 Urine Protein Negative (Negative) 01/26/24 Urine Glucose (UA) Negative (Negative) 01/26/24 Urine Ketones Trace (Negative) H 01/26/24 Urine Blood Trace (Negative) H 01/26/24 Urine Nitrite Negative (Negative) 01/26/24 Urine Bilirubin Negative (Negative) 01/26/24 Urine Urobilinogen Negative (Negative) 01/26/24 Urine Leukocyte Esterase Negative (Negative) 01/26/24 Urine WBC (Auto) 0-5 /hpf (0-5) 01/26/24 Urine RBC (Auto) 3-5 /hpf (0-2) H 01/26/24 Urine Hyaline Casts (Auto) 0-2 /lpf (0-2) 01/26/24 Urine Epithelial Cells (Auto) 0-2 /hpf (0-2) 01/26/24 Urine Bacteria (Auto) None Seen (None Seen) 01/26/24 Blood Type B Positive 01/26/24 Antibody Screen NEGATIVE 09/05/24 Testing Electrocardiogram Date: 02/24/23 Sinus bradycardia, rate 54 bpm Chest X-Ray Date: 02/24/23 No acute process
--- NOTE | 2024-02-15 06:26 | History & Physical Bridge Note ---
Date of Service February 15, 2024 History & Physical Bridge Note I have examined the patient, reviewed the History & Physical and in the interval since the performance of the History & Physical I have noted the following changes of clinical significance:consent and site verirfied. no changes noted
[~2024-02-15 06:28] MED LIST changes: +EPINEPHrine INJ 1 MG/ML AMP ONE; -LR 500ML BOLUS, THEN 15ML/HR IV SCH; -LR 60ML/HR IV SCH; -ROPIVACAINE 0.5% HCL/PF 150 MG, BUPIVACAINE 0.75% MPF 20 ML, EPINEPHrine 0.15 MG, Ketor... INFIL SCH; -TRANEXAMIC ACID 1,000 MG x 1 **For Topical Use TOP SCH; -ceFAZolin 2000MG 2,000 MG/15 ML SYR IV SCH
[2024-02-15] MEDS: LR 60ML/HR IV SCH (07:35)
[2024-02-15] MEDS: LR 500ML BOLUS, THEN 15ML/HR IV SCH (07:35)
[2024-02-15] MEDS ORDERED: PROPOFOL IV EMULSION 10 MG/ML 20 ML VIAL IV ONE (07:53)
[2024-02-15] MEDS ORDERED: MIDAZOLAM HCL 1 MG/ML 2ML VIAL ONE (07:53)
[2024-02-15] MEDS ORDERED: LIDOCAINE 2% 2 ML VIAL/AMP(20MG/ML) INFIL ONE (07:53)
[2024-02-15] MEDS ORDERED: fentaNYL citrate PF 100 MCG/2 ML VIAL ONE (07:54)
[2024-02-15] MEDS ORDERED: KETAMINE HCL 10MG/ML SYR ONE (07:55)
[2024-02-15] MEDS: TRANEXAMIC ACID 1,000 MG **IV Pre-op IV SCH (08:36)
[2024-02-15] MEDS: ceFAZolin 2000MG 2,000 MG/15 ML SYR IV SCH ×2 (09:02→17:50)
[2024-02-15] MEDS: ROPIV 0.5% 246mg, Ketorolac 30mg, EPINEPHrine 0.5mg in NSS INFIL SCH (09:34)
[2024-02-15] MEDS: ORTHO JOINT ANESTHETIC ONE (09:34)
[2024-02-15] MEDS ORDERED: GLYCOPYRROLATE 0.2 MG/ML VIAL ONE (09:49)
[2024-02-15] MEDS: TRANEXAMIC ACID 1,000 MG **IV Intra-op IV SCH (10:11)
--- NOTE | 2024-02-15 10:32 | Post Operative Brief Note ---
Immediate Post Op Note Date of Surgery February 15, 2024 Pre & Post Diagnosis Operation Date: 02/15/24 08:50 Pre-Op Diagnosis: Left Knee Osteoarthritis Post-Op Diagnosis: Left Knee Osteoarthritis I identified the patient and participated in the time-out.: Yes Procedure Operation Date: 02/15/24 08:50 Actual Procedures p Left Total Knee Arthroplasty(Left) - Walter Fried MD Surgeon Walter Fried MD Pharmacy Intake Coordinator Pipe/Aditya Estimated Blood Loss 50 Findings Consistent with Post-Op Diagnosis Severe medial and patellofemoral arthropathy left knee with flexion varus deformity Fluids See anesthesia report Complications None
--- NOTE | 2024-02-15 10:35 | Operative Report ---
Post Operative Report Pre & Post Diagnosis Operation Date: 02/15/24 08:50 Pre-Op Diagnosis: Left Knee Osteoarthritis Post-Op Diagnosis: Left Knee Osteoarthritis I identified the patient and participated in the time-out.: Yes Procedure Operation Date: 02/15/24 08:50 Actual Procedures p Left Total Knee Arthroplasty(Left) - Walter Fried MD Surgeon Walter Fried MD Laboratory Asst Pipe/Aditya Estimated Blood Loss 50 Findings Consistent with Post-Op Diagnosis Severe medial and patellofemoral disease varus flexion deformity Fluids See anesthesia Specimens Bone pathology Drains None Complications None Indications Severe pain positive x-ray findings for years Description of Procedure After the patient was appropriate notified site verified consent verified antibiotics confirmed as being given the left lower extremity was prepped and draped in his routine fashion. Tourniquet was inflated to 275 mmHg after exsanguination limb with a rubber stick branch for total of 51 minutes. Midline exposure was utilized parapatellar arthrotomy performed synovectomy completed. Osteophytes resected distal femur entered. Cruciates resected tibia subluxated menisci resected. Distal femur was then resected 11 mm proximal tibia 4 mm the extension gap was excellent. Femur was sized to a 6 appropriate cutting block applied the anterior posterior condylar and chamfer cuts made. Flexion gap was then checked and was excellent the box cut was then made. Lug holes seedings all holes were made and the size 6 femur required a small revision of the notch and then it was seated well. Tibia was then subluxated and broached and reamed for size 6. The 8 spacer with gave the best stability in mid range and allowed full flexion and extension. The patella was then resected leaving about 15 mm and a 41 button was seated after the holes were made. The patella tracked well. Ortho mix was then injected all around the knee. The trial implants were then removed the wound was soaked in Betadine for 3 minutes then irrigated with Pulsavac and then the permanent cemented in position tibia femur and patella in that order after 12 minutes the tourniquet was deflated minor bleeding points close electrocautery. After appropriate after 14 minutes the knee was flexed trial spacer removed minimal cement removal required the wound was then irrigated with the Pulsavac Betadine and the permanent liner seated and then reduced and closed at 40 degrees of flexion with #2 Vicryl 2-0 Vicryl and standstill clips appropriate dressing applied the patient transferred recovery in satisfactory addition having tolerated the procedure well patient's family contacted after the procedure. Summary of implants size 6 left femur size 6 rotating platform tray, 41 patella, size 6 insert posterior cruciate substituting 8 mm thick 2 bags Palacos G cement. EBL again was 50 cc crystalloid per anesthesia bone pathology pending DVT prophylaxis per protocol family contacted. The total knee system was attune ATT UNE CamGSM I attest to the content of the Intraoperative Record and any orders documented therein. Any exceptions are noted below.
--- NOTE | 2024-02-15 10:36 | Orthopedic Progress Note ---
Date of Service February 15, 2024 Orthopedic Progress Note Tolerated total knee replacement left side well denies chest pain shortness of breath fever chills nausea vomiting headache. Vital signs are stable he is afebrile. Neurovascular check limited by spinal. Wound dressing clean dry and intact. X-ray pending. Family contacted.
--- NOTE | 2024-02-15 10:39 | Discharge Summary ---
Date of Service February 16, 2024 Admission HPI Per Admitting Provider Left knee pain for decades x-rays positive wants to proceed with knee replacement. Principal Diagnosis Osteoarthritis left knee with flexion varus deformity Discharge Data Allergies Allergy/AdvReac Type Severity Reaction Status Date / Time No Known Drug Allergies Allergy Unknown Verified 02/15/24 07:09 cat dander Allergy Sneezing, Verified 02/15/24 07:09 Itchy/Watery Eyes Vaccinations None Consultations None Procedures Performed Operation Date: 02/15/24 08:50 Actual Procedures p Left Total Knee Arthroplasty(Left) - Walter Fried MD Ordered Studies 02/15/24 05:00 US - OR guided needle placemen Routine Hospital Course (1) Status post left knee replacement: Status post left total knee replacement continue care management plan Total Time Total Time Spent Total Time Spent (In Minutes): 5 Discharge Plan Discharge Items Reason For Visit: Left Knee Osteoarthritis Discharge Diagnosis: Same Condition on Discharge: Good Activity: Per Instructions section Lifting: No more than 5 pounds Bathing: Keep incision dry Sexual Activity: Wait until after follow-up appointment Exercise/Sports: Wait until after follow-up appointment Call non-emergency contact if: your temperature is above 101.5, your wound has i ncreased redness, your wound has increased drainage and your wound pain has increased Follow-up/Referrals: Josh Chang MD [Primary Care Provider] - Add Attending Provider Instructions: DIET: * Resume previous diet. MEDICATIONS: * Please take your prescriptions as instructed at your pre-op appointment and/or see medication discharge instructions listed above. * If concerns develop, call your physician's office at . SPECIAL CARE INSTRUCTIONS: * Ice/Elevate as instructed. * Keep dressing clean, dry, intact. * Your surgical extremity may be discolored due to prepping agents used on the skin. A bluish-green tint is a normal variant and should not cause alarm. Call your doctor at [phone] if: * Temperature above 101 degrees * Pain not relieved by pain medicine ordered * There is increased drainage or redness from any incision * You have any unanswered questions, problems or concerns. FOLLOW UP VISIT: * If not already scheduled, please call the office at to schedule a follow-up appointment. Pending Studies at Discharge: Yes (Bone pathology) Stand-Alone Forms: [facility] Medications and DC Order Prescriptions: No Action multivitamin Tablet 1 tab PO QAM valacyclovir [Valtrex] 500 mg Tablet 500 mg PO BID PRN (Reason: Cold Sores) aspirin 81 mg Tablet,Delayed Release (Dr/Ec) 81 mg PO QAM tamsulosin 0.4 mg Capsule 0.4 mg PO HS metoprolol succinate 25 mg Tablet Extended Release 24 Hr 25 mg PO QAM omega-3 fatty acids-vitamin E 1,000 mg Capsule 1 cap PO QAM acetaminophen 500 mg Tablet 1,000 mg PO Q6H PRN (Reason: Pain) atorvastatin 40 mg Tablet 40 mg PO HS clindamycin HCl 300 mg capsule 600 mg PO DAILY Rx Instructions: Before Dental Work lisinopril 20 mg tablet 20 mg PO QAM Glucosamine Chondroitin 1.1 tab PO DAILY Admission Data Admit Date/Time: 02/15/24 10:52 Attending Provider: Walter Fried Admit Provider: Walter Fried Primary Care Provider: Josh Chang Other Providers: [facility]
--- NOTE | 2024-02-15 10:45 | Operative Report ---
Post Operative Report Pre & Post Diagnosis Operation Date: 02/15/24 08:50 Pre-Op Diagnosis: Left Knee Osteoarthritis Post-Op Diagnosis: Left Knee Osteoarthritis I identified the patient and participated in the time-out.: Yes Procedure Operation Date: 02/15/24 08:50 Actual Procedures p Left Total Knee Arthroplasty(Left) - Walter Fried MD Surgeon Walter Fried MD Drum Loader And Unloader Pipe/Aditya Estimated Blood Loss 50 Findings Consistent with Post-Op Diagnosis Specimens Bone pathology Description of Procedure Patient underwent spinal anesthesia he was brought to the operative suite where he underwent sedation per the anesthesia providers. Left lower extremities prepped and draped in usual sterile fashion. Surgical timeout was performed. Patient underwent left total knee arthroplasty, please see Dr. Fried's operative report for full details. I was present and assisted with limb positioning, soft tissue retraction, hardware implantation, wound closure, postoperative dressing placement. Patient was awakened and taken to the recovery room in stable condition. I attest to the content of the Intraoperative Record and any orders documented therein. Any exceptions are noted below.
--- NOTE | 2024-02-15 10:55 | Operative Report ---
Post Operative Report Pre & Post Diagnosis Operation Date: 02/15/24 08:50 Pre-Op Diagnosis: Left Knee Osteoarthritis Post-Op Diagnosis: Left Knee Osteoarthritis I identified the patient and participated in the time-out.: Yes Procedure Operation Date: 02/15/24 08:50 Actual Procedures p Left Total Knee Arthroplasty(Left) - Walter Fried MD Surgeon MARLEEN Fried MD Hims Manager Pipe/Aditya TERESA Estimated Blood Loss 50 Findings Consistent with Post-Op Diagnosis see operative report Specimens see operative report Drains none Complications none Disposition Accompanied Patient To Recovery: Yes Indications This 88 year old male presented to the office with complaints of persisting left knee pain. He had tried conservative care measures without improvement. He has a history of previous right total knee arthroplasty and has done very well with it. He elected to proceed with the same on the left. Preoperative imaging was obtained. Description of Procedure The patient was administered a spinal anesthetic and then taken to the operating room where he was given sedation. He was prepped and draped in the usual sterile fashion. Please see Dr. Fried's operative report for specifics of the procedure. I was present for the entire case from initial patient positioning through final wound closure. Assistance was provided in tissue retraction, hemostasis, trial implant placement, final implant placement, and final wound closure. The patient was taken to the recovery room in satisfactory condition. I attest to the content of the Intraoperative Record and any orders documented therein. Any exceptions are noted below.
--- NOTE | 2024-02-15 11:21 | Anesthesiology Progress Note ---
Date of Service February 15, 2024 Anesthesia Post Procedure Vital Signs Vital Signs: Temp Pulse Pulse Resp BP Pulse Ox O2 Del Method 02/15/24 10:45 37.1 C 69 18 106/63 99 Oxymask 02/15/24 07:14 36.7 C 66 20 162/86 H 96 Room Air O2 Flow Rate 02/15/24 10:45 6 02/15/24 07:14 Transfer of Care Handoff Completed per policy Notes Mental Status: alert / awake / arousable Patient Amnestic to Procedure: Yes Nausea / Vomiting: adequately controlled Pain: adequately controlled Airway Patency, RR, SpO2: stable & adequate BP & HR: stable & adequate Hydration State: stable & adequate Neuraxial Anesthesia: was administered and sensory block is resolving Anesthetic Complications: no major complications apparent
[2024-02-15] MEDS ORDERED: ePHEDrine sulfate 50 MG/5 ML SYR ONE (11:49)
--- NOTE | 2024-02-15 12:28 | XRay Report ---
XR knee LT 1 or 2V routine CLINICAL HISTORY: S/P L TKA TECHNIQUE: 2 views of the left knee were obtained. Comparison: Comparison is made to left knee radiographs 10/10/2023 FINDINGS: Patient is status post total knee arthroplasty with expected postsurgical changes including soft tiss ue swelling and subcutaneous emphysema. No periarticular lucency or hardware fracture is seen. IMPRESSION: Expected postoperative appearance status post placement of total knee arthroplasty. ACT 112: Negative or not required by law. Electronically signed by: Jasper De La Paz M.D. 02/15/2024 12:27 PM
--- NOTE | 2024-02-15 12:37 | Orthopedic Progress Note ---
Date of Service February 15, 2024 Orthopedic Progress Note Still waiting for his bed seen in recovery room. He states he is doing well. Denies chest pain shortness of breath fever chills nausea or headache. Vital signs are stable he is febrile. Neurovascular check is returning but still not completely normal. He is getting some trace extension and flexion of his toes on the operative side. Wound dressing clean dry and intact. Postop x-rays look excellent. Assessment doing well continue care pathway. Initiate anticoagulation tomorrow.
[2024-02-15] MEDS ORDERED: diphenhydrAMINE 50 MG/ML VIAL IV PRN (13:13)
[2024-02-15] MEDS ORDERED: oxyCODONE HCL IR 5 MG TAB (IMMEDIATE RELEASE) PO PRN (13:13)
[2024-02-15] MEDS ORDERED: METOCLOPRAMIDE HCL INJ 5 MG/ML 2 ML VIAL IV PRN (13:13)
[2024-02-15] MEDS ORDERED: MAGNESIUM HYDROXIDE SUSP 30 ML UDC PO PRN (13:13)
[2024-02-15] MEDS ORDERED: NALOXONE HCL 0.4 MG/1 ML VIAL/CARP IV PRN (13:13)
[2024-02-15] MEDS ORDERED: ALUMINUM/MAGNESIUM SUSP 30 ML UDC PO PRN (13:13)
[2024-02-15] MEDS ORDERED: HYDROmorphone INJ 0.5 MG/0.5 ML SYR IV PRN (13:13)
[2024-02-15] MEDS ORDERED: bisacodyL 10 MG SUPP PR PRN (13:13)
[2024-02-15] MEDS ORDERED: ONDANSETRON INJ 2 MG/ML 2 ML VIAL IV PRN (13:13)
[2024-02-15] MEDS ORDERED: VANCOMYCIN CONSULT ACTIVE PRN (13:13)
--- OUTSIDE RECORDS SUMMARY | 2024-02-15 13:38 | External Medical Summary | Summary of Care ---
Author Name Unknown Organization [facility] Address [address] [facility] [place] [address] Phone [phone] Care Team Providers Care Cooking Show Host Name Role Phone Josh Wilson MD Primary Care Provider [phone] Reason for Visit * Reason Comments NEW PATIENT Pt here today with c /o lesion on LEFT side of cheek, present for 1 year.Hx: BCC Encounter Details Date Type Department Care Team (Late st Contact Info) Description 02/14/2024 11:15 AM EDT Office Visit Dermatology [facility] [address] [facility] [place] [address] Tom Gómez MD [address] [facility] [place] [address] Skin neoplasm*; Actinic keratosis Allergies No known active allergiesdocumented as of this encounter (statuses as of 02/14/2024) Medications Medication Sig Dispensed Refills Start Date End Date Status AMOXICILLIN 250 MG PO CHEW CHEW AND SWALLOW 8 TABS BY MOUTH 1 HOUR PRIOR TO DENTAL APPT. 0 06/04/2014 Active FISH OIL 1000 MG PO CAPS 1 cap daily Active M-VIT PO TABS 1 tab daily Active aspirin enteric coated 81 MG TBECIndications:Cerebro vascular disease, arteriosclerotic, post-stroke Take 1 Tab by mouth daily. 100 Tab 3 04/25/2017 Active atorvaSTATin (LIPITOR) 40 MG TabletIndications:Cereb rovascular disease, arteriosclerotic, post-stroke,Dyslipidemi a, goal LDL below 100 Take 1 Tab by mouth daily. 90 Tab 3 06/06/2017 Active metoprolol succinate XL (TOPROL XL) 25 MG [id number]:Essenti al hypertension with goal blood pressure less than 130/80 Take 1 Tab by mouth daily. 90 Tab 3 06/06/2017 Active valACYclovir (VALTREX) 1000 MG Tablet Take 2 Tabs by mouth every 12 hours. For 1 day for cold sores 4 Tab 11 06/06/2017 Active lisinopril (PRINIVIL) 20 MG Tablet Take 1 Tab by mouth daily. 90 Tab 3 09/05/2017 Active Tamsulosin HCl 0.4 MG Oral Capsule (Flomax) Take 1 Capsule by mouth in the morning. 11/27/2020 Active Acetaminophen ER 650 MG Oral Tablet Extended Release (Tylenol 8 Hour) Take 1 Tablet by mouth every 8 hours as needed. Active documented as of this encounter (statuses as of 02/14/2024) Active Problems Problem Noted Date Diagnosed Date History of nonmelanoma skin cancer 03/24/2017 Overview: Hx of BCC on right nasal alar groove - 2015 Hx of BCC on left upper cutaneous lip - 2014 Hx of BCC on upper back - 2013 Hx of BCC right upper arm - 2012 Hx of BCC right lower back - 2012 Hx of BCC on back - 2011 Cataract 06/02/2016 Intention tremor 10/23/2012 Dyslipidemia, goal LDL below 100 10/23/2012 KIDNEY DISEASE, CHRONIC, STAGE III (GFR 30-59 ML /MIN) 10/11/2011 Overview: Per CKD protocol #1 HTN, goal below 130/80 10/16/2010 Other allergic rhinitis 09/25/2008 Overview: ICD-10 update of inactive term CEREBROVASCULAR DZ, POST-STROKE 09/03/2008 Overview: Modified per CVA protocol #8 BPH without obstruction/lower urinary tract symp toms 07/21/2007 Primary localized osteoarthrosis of pelvic regio n or thigh 04/20/2007 ADVANCE DIRECTIVE INFORMATION 11/05/2005 Overview: Pt took booklet. FAMILY HX-GI MALIGNANCY 05/09/2001 Hearing loss 05/09/2001 GENERAL OSTEOARTHROSIS 02/24/1998 documented as of this encounter (statuses as of 02/14/2024) Resolved Problems Problem Noted Date Diagnosed Date Resolved Date History of basal cell cancer 12/15/2016 03/24/2017 Neoplasm of uncertain behavior of skin 11/07/2013 12/15/2016 Actinic keratosis 11/07/2013 03/24/2017 Tick bite 11/06/2012 05/13/2015 History of basal cell carcinoma 11/06/2012 12/15/2016 Basal cell carcinoma of skin of upper limb, including shoulder 07/05/2012 12/15/2016 Dyslipidemia, goal to be determined 05/08/2009 10/23/2012 Overview: Per Lipid Taxonomy. Cerebrovascular event, ill-d efined, within last 8 weeks 03/23/2007 04/20/2007 Cerebrovascular event, ill-d efined, within last 8 weeks 03/23/2007 09/05/2008 Overview: Modified per CVA protocol #8 Bilateral inguinal hernia 02/07/2007 HTN, goal below 140/90 09/15/200610/16 PURE HYPERCHOLESTEROLEM 03/15/200504/22 Overview: Per Lipid Taxonomy. ELEV BL PRES W-O HYPERTN 03/15/2005 documented as of this encounter (statuses as of 02/14/2024) Immunizations Name Administration Dates Next Due Pneumococcal Conjugate Vacc, 13 Valent (Prevnar) 10/29/2014 Pneumococcal Polysaccharide PPV23 (Pneumovax) 01/17/2007 Seasonal Influenza, PF, 6 M & above, IM , (FluLaval or Fluzone) 02/18/2017 Seasonal Influenza, Quadriva lent, No Preserve, IM 04/20/2016,03/14/2015 Seasonal Influenza, Trivalen t, (IIV3), with Preserv, (Fluzone) 04/01/2014,03/10/2013,03/16/2012,02/11,04/13/2010,03/27/2008,03/16/2006 TDAP (age 10 and older)(Boostrix) 10/24/2013 Varicella Zoster Vaccine (Adult) 10/23/2010 documented as of this encounter Social History Tobacco Use Types Packs/Day Years Used Date Smoking Tobacco: Never Smokeless Tobacco: Never Alcohol Use Standard Drinks/Week Comments Yes 0 (1 standard drink = 0.6 oz pure alcohol) As of 07.09.2006, the last noted alcohol intake was 14 ounces. PHQ-2 Answer Date Recorded PHQ-2 Score -1 03/29/2018 Utilities Answer Date Recorded Do you have trouble paying y our heating, water, or electric bill? (Adult - for ages 18 years and over) Not on file 11/08/2023 Is your family able to pay t he heat, water, or electric bill? (Household - for ages 0-17 years) Not on file 11/08/2023 Does your family have access to good internet? (Household - for ages 0-17 years) Not on file 11/08/2023 Social Connections Answer Date Recorded How often do you feel lonely or isolated from those around you? (Adult - for ages 18 years and over) Not on file 11/08/2023 Sex and Gender Information Value Date Recorded Sex Assigned at Not on file Gender Identity Not on file Sexual Orientation Not on file Job Start Date Occupation Industry Not on file Not on file Not on file documented as of this encounter Progress Notes * Tom Gómez MD - 02/14/2024 11:12 AM EDT SUBJECTIVE: Chief Complaint: Chief Complaint Patient presents with NEW PATIENT Pt here today with c/o lesion on LEFT side of cheek, present for 1 year. Hx: BCC HPI: Delvis Lizama is a 88 year old male seen for concern for lesion on left cheek/roman catholic. Presentperhaps a year, growing History of multiple NMSC 2019 BCC nose - left ala Hx of BCC left neck - 2017 Hx of BCC on right nasal alar groove - 2016 Hx of BCC on left upper cutaneous lip - 2014 Hx of BCC on upper back - 2013 Hx of BCC right upper arm - 2012 Hx of BCC right lower back - 2012 Hx of BCC on back - 2011 REVIEW OF SYSTEMS: CONSTITUTIONAL: negative SKIN: No new or changing moles or rashes other than those noted in HPI HEME/LYMPH: No new or enlarging lumps or bumps OBJECTIVE: GEN: Healthy, alert, no distress, appears oriented, pleasant, and cooperative SKIN: Problem focused exam reveals: A. Left roman catholic/cheek - 1cm indurated and eroded pink plaque - favor bcc B. Left medial forehead - 5mm translucent pink papule - bcc Right forehead - dry gritty erythematous papule ASSESSMENT/PLAN: Skin neoplasm(s) - Shave biopsy of the following lesion(s) A. Left roman catholic/cheek - 1cm indurated and eroded pink plaque - favor bcc B. Left medial forehead - 5mm translucent pink papule - bcc Procedure - Tangential biopsy of skin Biopsy by shave was recommended for the lesion(s) noted above to establish and confirm diagnosis. The procedure, risks, benefits, alternatives and expected outcomes were discussed with the patient and consent was obtained. Time out called. Patient identified, procedure verified, site(s) identified and verified. Patient and staff present in agreement. Area prepped with alcohol and anesthetized using 0.5% lidocaine with epinephrine at 1:200,000 concentration. Biopsy of lesion(s) performed. 20% AlCl and bandaging applied. Specimen(s) sent to pathology. Patient instructed in routine post-op care. Actinic keratosis -The diagnosis and malignant potential of the lesion was explained. Treatment options were reviewedincluding cryotherapy, topical medications, and observation. All questions were addressed. Procedure - Cryotherapy (Premalignant Destruction) -The patient would like to proceed with cryosurgery;Cryosurgery explained to the patient, consent obtained, patient, site and procedure verified, and then cryotherapy was performed with Liquid Nitrogen via cryo spray unit to 1 lesions. Location noted in physical exam. Post op course explained. -Discussed that if any of these lesions fail to completely resolve after treatment patient should call me for re-evaluation F/u - skin check, next available Tom Gómez MD REF: JOSH WILSON [address] [place] [phone] (office) [phone] (fax) PCP: JOSH WILSON [address] [place] [address] [phone] documented in this encounter Nursing Notes * Stephanie Quintero CMA - 02/14/2024 11:10 AM EDT Chief Complaint Patient presents with NEW PATIENT Pt here today with c/o lesion on LEFT side of cheek, present for 1 year. Hx: BCC documented in this encounter Plan of Treatment Pending Results Name Type Priority Associated Diagnoses Date /Time SURGICAL PATHOLOGY Pathology Routine Skin neoplasm 02/14/2024 11:22 AM EDT Health Maintenance Due Date Last Done Comments Albumin/Creatinine Ratio 1953 Zoster Vaccines (2 of 3) 12/18/2010 10/23/2010 CKD PHOS USE SMARTSET 56544 11/12/2014 11/12/2013 CKD HGB USE SMARTSET 29938 12/17/201712/17, 11/13/2015, 10/29/2014, Additional history exists Depression Screening 09/28/2018 09/28/2017 DTap/Tdap Vaccines (2 - Td or Tdap) 10/25/2023 10/24/2013, 03/15/2005, 01/23/1993 COVID-19 Vaccine ( - season) 2024 Influenza Vaccine (FLU shot) (#1) 2024 02/18/2017, 04/20/2016, 03/14/2015, Additional history exists Pneumococcal Vaccine: 65+ Years Completed 10/29/2014, 01/17/2007 HPV (Gardasil) Vaccine Aged Out No lo nger eligible based on patient's age to complete this topic Hepatitis B Vaccine Aged Out No longe r eligible based on patient's age to complete this topic MENINGOCOCCAL (MENACTRA/MENVEO) Aged Out No longer eligible based on patient's age to complete this topic documented as of this encounter Medical Devices Not on filedocumented as of this encounter Visit Diagnoses Diagnosis Skin neoplasm- Primary Neoplasm of unspecified nature of bone, soft tissue, and skin Actinic keratosis documented in this encounter Care Teams Cooking Show Host Relationship Specialty Start Date End Date Josh Wilson MD [address] [place] [address] PCP - General Critical Care Medicine 01/25/19 documented as of this encounter
--- OUTSIDE RECORDS SUMMARY | 2024-02-15 13:38 | External Medical Summary | Continuity of Care Document ---
Author Name Unknown Organization [facility] [id number] Address [facility] [place], [place] [id number] Care Team Providers Care Irrigation Worker Name Role Phone Josh Chang Primary Care Physician [phone] Encounter [facility] [id number] Date(s): 01/26/24 - 01/26/24 [facility] [address] [place], [place] [address]A [facility] [address] [place] [address] Encounter Diagnosis Left knee DJD(Discharge Diagnosis) - 01/26/24 Discharge Disposition: Home or Self Care Attending Physician: BRII Burgess, Patrick Jara Referring Physician: MD Fariha, Walter Barker Allergies, Adverse Reactions, Alerts Substance Criticality Severity Reaction Reaction Severity Status Cats Active Dust Active Ragweed Active Mites Active Medications Aspir 81 oral delayed release tablet Start: 12/26/17 9:37:00 AM EDT, 1 tab, PO, Daily Start Date: 12/26/17 Status: Ordered atorvastatin 40 mg oral tablet TAKE 1 TABLET BY MOUTH DAILY Start Date: 09/10/21 Status: Ordered EPA Fish Oil oral capsule Start: 12/26/17 9:37:00 AM EDT, 1 cap, PO, Daily Start Date: 12/26/17 Status: Ordered Euflexxa 10 mg/mL intra-articular solution Start: 04/27/23 2:18:00 PM EST, 20 mg =, intra-articular, q7days, Disp# 6 mL, Refills: 0, 3 syringesfor L knee. Please ship to physician's office: [address] [facility] [address], Note to Pharmacy: L KNEE DJD [id number], Pharmacy: [facility] (Specialty) [facility] Start Date: 04/27/23 Stop Date: 05/18/23 Status: Ordered Euflexxa 10 mg/mL intra-articular solution Start: 10/30/20 9:33:00 AM EDT, 20 mg =, intra-articular, q7days, Disp# 6 mL, Refills: 0, [facility] Start Date: 10/30/20 Status: Ordered Flomax 0.4 mg oral capsule Start: 10/29/20 2:46:00 PM EDT, 1 cap, PO, Daily Start Date: 10/29/20 Status: Ordered glucosamine 500 mg oral capsule Start: 12/26/17 9:37:00 AM EDT, 1 cap, PO, Daily Start Date: 12/26/17 Status: Ordered lisinopril 5 mg oral tablet Start: 09/05/12 10:17:00 AM EDT, See Instructions, Doseage and instructions unknown Start Date: 09/05/12 Status: Ordered metoprolol tartrate 25 mg oral tablet Start: 09/05/12 10:18:00 AM EDT, See Instructions, Dosage and instructions unknown Start Date: 09/05/12 Status: Ordered Multiple Vitamins oral tablet Start: 09/05/12 10:16:00 AM EDT, 1 tab, PO, Daily Start Date: 09/05/12 Status: Ordered Tylenol 325 mg oral tablet Start: 09/05/12 10:16:00 AM EDT, See Instructions, Dosage and instructions unknown Start Date: 09/05/12 Status: Ordered Mental Status 01/26/24 Barriers to Learning one year None evide nt Mandatory Health Literacy Documentation Yes Health Literacy Communication Barriers N ever Primary Language Georgian Problem List Condition Confirmation Course Effective Dates Status H ealth Status Informant S/P total hip arthroplasty Confirmed Active Hip pain, right Confirmed Active Status post replacement of left shoulder joint Confirmed Active S/P total knee arthroplasty Confirmed Active Knee pain, right Confirmed Active Osteoarthritis of hip Confirmed Active Osteoarthritis of left shoulder Confirmed Active Right knee DJD Confirmed Active Paresthesia of left leg Confirmed Active Stroke Confirmed Active Diagnosis Diagnosis Type Effective Dates Health Status Cl inical Service Informant Left knee DJD Discharge Diagnosis 01/26/24 Procedures Procedure Date Related Diagnosis Body Site Status right total hip replacement 05/23/07 Completed Tonsillectomy 1937 Completed right and left hernia repairs ABD. 1 Completed ......2009 Vital Signs Most recent to oldest [Reference Range]: 1 Height 169.0 cm (01/26/24 1:53 PM) Patient Weight 69.0 kg (01/26/24 1:53 PM) Body Mass Index 24.16 kg/m2 (01/26/24 1:53 PM) Heart Rate 69 bpm (01/26/24 1:53 PM) Blood Pressure 110/72mmHg (01/26/24 1:53 PM) Social History Social History Type Response Smoking Status Never smoked cigaret terry Sex Male Sex Representation Male (finding) Pre-OP H & P * BRII Burgess Cory D: MODIFY, MODIFY, MODIFY, PERFORM Event Display: Pre-OP H & P Authored Date: [id number] PRE-OPERATIVE HISTORY AND PHYSICAL Name: JC ACEVES Patient Number: [id number] : 1935 Date of Service: 01/27/2024 PRE-OP Diagnosis: Left knee osteoarthritis Planned Procedure: Left knee total knee arthroplasty Chief Complaint: Left knee pain and loss of motion History of Present Illness (including history relevant to procedure): This 88-year-old male presents today for his preoperative history and physical. He is scheduled to undergo a left knee total kneearthroplasty with Dr. Fried on 02/15/2024. The patient has a longstanding history of left knee pain. It has been ongoing for years. Symptoms have become worse with time. It is now affecting his ADLs. Pain is worse with weightbearing and ambulation. He denies any numbness or tingling. Pain isprimarily medial and anterior. Occasional night pain. He denies any effusions. He has a history of previous right total knee arthroplasty in 2019 and has done well with it. He elects to proceed with the same on the left. Preoperative imaging has been obtained. Review Of Systems: A total of 10 systems were reviewed and are significant only for below stated conditions. Family history: Significant for cancer and heart disease. Parents are . 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 . No tobacco use, daily EtOH use. 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 - 2007......2009 right total hip replacement Left shoulder total shoulder arthroplasty Right total knee arthroplasty 05/23/200702/2023 Tonsillectomy Left shoulder rotator cuff repair 193 Allergies and Sensitivities: Ragweed Cats Mites Dust Current Home Meds: (Last Updated 01/25 13:53) acetaminophen (Tylenol 325 mg oral tablet) Dosage and instructions unknown aspirin (Aspir 81 oral delayed release tablet) 81 mg PO Daily atorvastatin (atorvastatin 40 mg oral tablet) TAKE 1 TABLET BY MOUTH DAILY glucosamine (glucosamine 500 mg oral capsule) 500 mg PO Daily lisinopril (lisinopril 5 mg oral tablet) Doseage and instructions unknown metoprolol (metoprolol tartrate 25 mg oral tablet) Dosage and instructions unknown multivitamin (Multiple Vitamins oral tablet) 1 tab PO Daily omega-3 polyunsaturated fatty acids (EPA Fish Oil oral capsule) 1 cap PO Daily sodium hyaluronate (Euflexxa 10 mg/mL intra-articular solution) 20 mg intra- articular q7days 3 syringes for L knee. Please ship to physician's office: [address] [place] [address] sodium hyaluronate (Euflexxa 10 mg/mL intra-articular solution) 20 mg intra- articular q7days tamSULOsin (Flomax 0.4 mg oral capsule) 0.4 mg PO Daily Vitals: Last Updated 01/26/24 13:53 Weights: Last Updated 01/26/24 13:53 Date Temp Pulse BP RR SpO2 FIO2 Date Wt(kg) Wt(lb) 01/25 13:53 69 110/72 95 01/25 13:53 69.0 152 01/25 13:53 69.0 152 24 Hr Tmax: No Data Available Initial Wt: 01/25 69.0 kg 152 lb Physical Exam: (relevant to the procedure, including heart and lung evaluation) General: Well-developed, well-nourished, elderly male, in no acute distress. Sitting in a chair. Alert and oriented. HEENT: Normocephalic, atraumatic. Eyes PERRLA, EOMI. Nares patent bilaterally without nasal drainage. Oropharynx with moist oral mucosa. Good dentition. Hearing aids present. Neck: No JVD. Cardiac: RRR. No MGR. Peripheral pulses are 2+. Lungs: Clear to auscultation bilaterally. No crackles, rhonchi, or wheezing. Good air movement. Abdomen: Bowel sounds present x 4. Soft nontender. No organomegaly. No masses. Extremities: Left knee evaluation reveals no intra-articular effusion. Varus stance. He has a lack of 10 degrees of terminal extension. Flexion to 95 degrees. Stable collateral ligaments. There is focal pain with palpation over the medial and lateral joint lines, with medial being worse. No defect or tenderness with palpation over the patellar tendon or quadriceps tendon. Limited patellar motion.Ambulating today with a slightly antalgic gait. Neuro: Gross sensation is intact across both lower extremities by soft touch. Skin: Warm and dry with good turgor. No rashes. No ecchymosis or intra-articular effusion. Studies of radiology results (relevant to the procedure): Radiographic imaging previously obtained was reviewed. It shows end-stage DJD of the left knee with periarticular osteophytes, subchondral sclerosis, and joint space narrowing. ASSESSMENT: Left knee DJD Plan: Approximate 30 minutes was spent with the patient reviewing operative procedure, postoperative recovery, physical therapy requirements, and medication use. Postoperative prescriptions for Eliquis and Percocet will be sent to his pharmacy upon discharge from the hospital. Anticipate discharge to the [facility] with outpatient PT there afterward. PDMP was checked and there are no concerning findings. The patient is currently asymptomatic of any COVID-19 or influenza symptoms. He already has a walker and cane. He will attend [facility] today for his preoperative lab work, EKG, and chest x-ray. Medical clearance has been requested from his PCP Dr. Chang. Postop follow-up appointment hasbeen made with me for March 01 for staple removal. This dictation has been completed using Snap[employer] text voice recognition software. Grammatical errors, omissions, insertions, and misspellings may be present due to the limitations of the software. Electronic Signature on File Electronically Reviewed/Signed by: Patrick Burgess PA-C Author Signature Dt/Tm:01/27/2024 04:28 PM Division of Sports Medicine Electronically Reviewed/Signed by: MD Epi Forrestigner Signature Dt/Tm: 01/27/2024 04:53 PM Analyst Market Intelligence for Clinical Affairs, [facility] David Professor in Orthopaedics Mutual Fund Accountant, [facility] CDS Patient Care team information Care Team Personnel Name: MD Bernardo, Josh Lorenz Position: Referring Member Role: Primary Care Provider Address: [address] [place] [address] [place] Care Team Related Persons Name: JP ACEVES
[2024-02-15] MEDS: KETOROLAC TROMETHAMINE 15 MG/ML VIAL IV SCH (13:51)
[2024-02-15] MEDS: VANCOMYCIN HCL 1,000 MG in SODIUM CHLORIDE 0.9% 250 ML IV ONE (13:55)
[2024-02-15] MEDS: SODIUM CHLORIDE 0.9% 1,000 ML IV SCH (13:55)
[2024-02-15] MEDS: FERROUS GLUCONATE 324 MG TAB PO SCH (17:09)
[2024-02-15] MEDS: ASCORBIC ACID 500 MG TAB PO SCH (17:09)
[2024-02-15] MEDS: ATORVASTATIN 40 MG TAB PO SCH (20:49)
[2024-02-15] MEDS: SENNA 8.6 MG TAB PO SCH (20:49)
[2024-02-15] MEDS: TAMSULOSIN HCL 0.4 MG CAP PO SCH (20:50)
[2024-02-15] MEDS: DOCUSATE SODIUM 100 MG CAP PO SCH (20:50)
[2024-02-15] MEDS: ACETAMINOPHEN 500 MG TAB PO SCH (21:08)
--- NOTE | 2024-02-16 06:34 | Orthopedic Progress Note ---
Date of Service February 16, 2024 Assessment & Plan Admission and Anticipated Discharge Date Admission Date: February 15, 2024 Orthopedic Progress Note Postop day #1 status post left total knee replacement. Patient doing well. Denies any chest pain shortness of breath fever chills nausea vomiting headache. Vital signs are stable he is afebrile. Neurovascular check femoral sciatic nerve is normal. Wound dressing clean dry and intact calf nontender. A.m. labs are pending. Assessment doing well plan is for discharge today after PT OT dressing change. Initiate anticoagulation today.
[2024-02-16 07:14] LABS: Hemoglobin 11.3 g/dl (14.0-18.0); Mean Corpuscular Hemoglobin 33.5 pg (25.0-34.0); Mean Corpuscular Hgb Conc 34.2 g/dL (32.0-36.0); Mean Corpuscular Volume 97.9 fL (80.0-100.0); Mean Platelet Volume 9.5 fL (9.4-12.4); Platelet Count 153 K/uL (130-400); RDW Coefficient of Variation 11.5 % (11.5-14.5); RDW Standard Deviation 41.1 fL (36.4-46.3); Red Blood Count 3.37 M/uL (4.70-6.10); White Blood Count 9.06 K/ul (4.8-10.8)
[2024-02-16 07:52] VITALS: BP 101/66; RESP 18; TEMP 98.6; O2SAT 95
[2024-02-16] MEDS: MULTIVITAMIN TAB PO SCH (08:06)
[2024-02-16] MEDS: ASPIRIN 81 MG ECTAB PO SCH (08:06)
[2024-02-16] MEDS: APIXABAN 2.5 MG TAB PO SCH (08:06)
[2024-02-16] MEDS: dexAMETHasone 10 MG in SYRINGE 0 ML IV SCH (08:06)
[2024-02-16] MEDS: METOPROLOL SUCC 25MG EXT REL TAB PO SCH (08:06)
[2024-02-16] MEDS: lisinopril 20 MG TAB PO SCH (08:07)
[2024-02-16 10:02] LABS: Calcium 8.9 mg/dl (8.6-10.3); Potassium 4.4 mmol/L (3.5-5.1)
[2024-02-16 10:08] LABS: BUN Creatinine Ratio 19.5 (10-20); Creatinine Clr Calc Pharmacy 41.7 ml/min; Est GFR (African American) 60.8 ml/min; Est GFR (Non-African American) 52.5 ml/min
[2024-02-16 10:39] VITALS: PULSE 62
--- NOTE | 2024-02-16 10:40 | Orthopedic Progress Note ---
Date of Service February 16, 2024 Assessment & Plan (1) Status post left knee replacement: Plan: Patient's dressings were changed this morning. JORGE stocking was applied. These will remain in place over the weekend. They can be changed on Tuesday as needed for swelling. Follow-up with me in 2 weeks as scheduled for staple removal. Continue with ice, elevation, and use of his walker for ambulation. Continue using the knee immobilizer today and tomorrow when out of bed. He can be discontinued entirely on Tuesday morning. He will start his Eliquis this morning. Continue twice daily for 4 weeks. Prescription for Eliquis and Percocet was sent to his pharmacy. Call the office with any other concerns. Written discharge instructions were provided. Admission and Anticipated Discharge Date Admission Date: February 15, 2024 Subjective This 88-year-old male is seen today in his room. He is 1 day status post left total knee arthroplasty. The patient states he is doing fine. He did not get much sleep due to interruptions. His pain is controlled. He feels ready for discharge to home. No complaints of chest pain, shortness of breath, nausea, vomiting, or abdominal pain. No additional complaints. He is sitting in his bedside chair and has finished his breakfast. Review of Systems Review of Systems: Unchanged from yesterday. Physical Exam Physical Exam: General: Well-developed, well-nourished, elderly male, in no acute distress. Sitting in his bedside chair. Alert and oriented. Skin: Warm dry with good turgor. No rashes. No ecchymosis or erythema. Expected postoperative edema at his left knee. Postsurgical dressings are in place on the left leg. Upon removal, he has scant dried blood on the innermost dressings. There is no active bleeding. Manasa are intact. Wound edges are well-approximated. No erythema or warmth. Musculoskeletal: The patient has intact motor function of his left leg. He is able to set his quad and perform a straight leg raise. He has nearly full terminal extension. Flexion to around 65 degrees easily. Intact motor function of the ankle and toes. Neurologic: Gross sensation is intact across the left leg by soft touch. Peripheral pulses are 2+. Results & Data Vital Signs (Past 12 Hours) Vital Signs Temp Pulse Resp BP Pulse Ox O2 Del Method 02/16/24 07:52 37.0 C 74 18 101/66 95 Room Air 02/16/24 04:41 37 C 74 16 138/66 97 Room Air 02/15/24 23:07 36.9 C 53 L 16 151/79 H 96 Room Air Laboratory Results CBC obtained this morning shows a white count of 9.06. H&H of 11.3 and 33.0. Platelets 153,000. PRP this morning shows normal electrolytes. BUN of 24 with creatinine 1.23. Glucose this morning is 117.
== END 2024-02-16 11:23 | disposition home or self-care (01) ==
LOC: ASU 06:28 → 3W 06:28